=== PATIENT | male | born 1985 | race Caucasian/White ===

== ENCOUNTER 2016-11-19 19:08 | Emergency (ER) | payer OTHER ==
[~2016-11-19] VITALS: Ht 160 cm; Wt 64.4 kg
[2016-11-19 19:16] VITALS: BP 150/81; PULSE 57; TEMP 36.9; O2SAT 97; Ht 160 cm; Wt 64.4 kg
[2016-11-19] MEDS ORDERED: KETOROLAC TROMETHAMINE 30 MG/ML VIAL IV STA (19:43)
[2016-11-19 20:07] LABS: BASO % 0.3 %; BASO ABS # 0.03 K/uL (0-0.2); COMPLETE YES; EOS % 1.5 %; HEMATOCRIT 44.4 % (42-52); IG% 0.3 %; LYMPH % 20.7 %; LYMPH ABS # 2.45 K/uL (1.2-3.4); MEAN CELL VOLUME 83.8 fL (80-100); MEAN CORPUSCULAR HEMOGLOBIN 30.8 pg (25-34); MEAN CORPUSCULAR HGB CONC 36.7 g/dl (32-36); MEAN PLATELET VOLUME 9.8 fL (7.4-10.4); MONO % 10.5 %; NEUT % 66.7 %; PLATELET COUNT 271 K/uL (130-400); WHITE BLOOD COUNT 11.86 K/uL (4.8-10.8)
--- NOTE | 2016-11-19 20:21 | DIAGNOSTIC IMAGING REPORT ---
LEFT KNEE 3 VIEWS HISTORY: L knee pain and swelling COMPARISON: None. FINDINGS: There is no fracture or dislocation. Small knee effusion. Mild anterior soft tissue swelling. No radiopaque foreign bodies. IMPRESSION: No fractures. Small knee effusion and mild anterior soft tissue swelling. Electronically signed by: Isael North M.D. 11/19/2016 8:19 PM Dictated Date/Time: 11/19/2016 8:18 PM
[2016-11-19 20:23] LABS: BUN/CREATININE RATIO 22.2 (10-20); CREATININE 1.3 mg/dl (0.60-1.40); POTASSIUM 4.5 mmol/L (3.5-5.1)
[2016-11-19 20:29] LABS: C-REACTIVE PROTEIN 3.38 mg/dl (0-0.29); URIC ACID 7.4 mg/dl (2.6-7.2)
[2016-11-19 20:45] LABS: CALCIUM 9.4 mg/dl (8.5-10.1)
[2016-11-19 22:23] LABS: LYME DISEASE AB IGG NEG (NEG)
[2016-11-19 22:24] LABS: LYME DISEASE AB IGM NEG (NEG)
--- NOTE | 2016-11-20 17:55 | EMERGENCY ROOM VISIT NOTE ---
ED Visit Note First contact with patient: 19:25 Chief Complaint: Left knee pain and swelling. History of Present Illness: Mr. Wong is a 31-year-old white male who presents into the ED complaining of left anterior knee pain. Historically patient reports he's had similar symptoms of left knee pain and swelling approximately 2 years ago. He treated these symptoms symptomatically with ice and rest and they resolved and have not returned until most recently. 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 Then he started developing the pain and anterior left knee swelling approximately one week ago. Since that time his pain and symptoms have been constant. He was seen by his PCP Dr. Hansen and was prescribed Augmentin, benemid and indomethacin for his symptoms. He reports she thought his discomfort could be from gout or a possible knee infection. Patient reports prior to coming to the hospital he was only able to take his medications once. Currently he describes his pain as a burning sensation. He places his discomfort over the anterior patella with prominence over the lateral aspect. He rates his discomfort 9/10. His pain worsens with palpation, flexion and extension of the knee. He has not identified any alleviating factors related to the pain. He is uses prescribed indomethacin without relief of his discomfort. His pain is nonradiating. Associated with his pain he had noted swelling over the patella. He denies recent trauma, previous significant injuries or surgeries, fevers, chills, sweats, skin eruptions, skin color changes, chest pain, shortness of breath, abdominal pain, decreased appetite, nausea, vomiting, leg weakness/ numbness/tingling, previous clots, claudication, cramping. Review of Systems: As noted above in history of present illness. All body systems were reviewed and found to be negative as noted above. Past Medical History: As previously noted, asthma, unspecified ulcer, status post hernia repair. Current Medications: As noted previously. Allergies to Medications: Percocet. Social History: Patient is currently employed; he feels safe in his home environment; he denies tobacco use and admits to social alcohol use. Physical Examination: Vital Signs: Date Time Temp Pulse Resp B/P Pulse Ox O2 Delivery O2 Flow Rate FiO2 11/19/16 19:16 36.9 57 16 150/81 97 Room Air GENERAL: 31-year-old male in moderate distress due to pain, nontoxic-appearing, afebrile and hemodynamically stable. NEUROLOGICAL: Awake, alert and oriented to person, place and time. Answering questions appropriately and following commands. Lymph gait. Good hand eye coordination. No focal motor or sensory deficits. SKIN: Warm, dry and pink. No soft tissue eruptions or trauma noted. THORAX: Lungs sounds are clear to auscultation and equal bilaterally with symmetrical chest wall. ABDOMEN: Flat, soft and nontender. Positive bowel sounds in all quadrants. LEFT LOWER EXTREMITY: No gross bony deformity. No tenderness over the hip, thigh, lower leg, calf, ankle or foot. Moderate tenderness over the patella with prepatellar swelling but no erythema or warmth. Positive patellar apprehension test. Unable to perform a bounce test. Negative ballottement test. No laxity of the collateral or cruciate ligaments. Unable to perform a Skinny's test due to pain. No calf tenderness or cords. With the knee stabilized he has full range of motion in plantar flexion and dorsiflexion of the ankle against resistance. Throughout the feet skin is warm and pink capillary refill is brisk, pulses and sensations are intact and equal bilaterally. ED Course: Patient is assessed as noted above. An IV lock was initiated. Laboratory Testing: Test 11/19/16 19:55 Range/Units White Blood Count 11.86 4.8-10.8 K/uL Red Blood Count 5.30 4.7-6.1 M/uL Hemoglobin 16.3 14.0-18.0 g/dL Hematocrit 44.4 42-52 % Mean Corpuscular Volume 83.8 80-100 fL Mean Corpuscular Hemoglobin 30.8 25-34 pg Mean Corpuscular Hemoglobin Concent 36.7 32-36 g/dl Platelet Count 271 130-400 K/uL Mean Platelet Volume 9.8 7.4-10.4 fL Neutrophils (%) (Auto) 66.7 % Lymphocytes (%) (Auto) 20.7 % Monocytes (%) (Auto) 10.5 % Eosinophils (%) (Auto) 1.5 % Basophils (%) (Auto) 0.3 % Neutrophils # (Auto) 7.92 1.4-6.5 K/uL Lymphocytes # (Auto) 2.45 1.2-3.4 K/uL Monocytes # (Auto) 1.24 0.11-0.59 K/uL Eosinophils # (Auto) 0.18 0-0.5 K/uL Basophils # (Auto) 0.03 0-0.2 K/uL RDW Standard Deviation 37.9 36.4-46.3 fL RDW Coefficient of Variation 12.5 11.5-14.5 % Immature Granulocyte % (Auto) 0.3 % Immature Granulocyte # (Auto) 0.04 0.00-0.02 K/uL Erythrocyte Sedimentation Rate 12 0-14 mm/hr Sodium Level 141 136-145 mmol/L Potassium Level 4.5 3.5-5.1 mmol/L Chloride Level 108 98-107 mmol/L Carbon Dioxide Level 26 21-32 mmol/L Anion Gap 7.0 3-11 mmol/L Blood Urea Nitrogen 29 7-18 mg/dl Creatinine 1.30 0.60-1.40 mg/dl Est Creatinine Clear Calc Drug Dose 65.0 ml/min Estimated GFR () 83.1 Estimated GFR (Non- 71.7 BUN/Creatinine Ratio 22.2 10-20 Random Glucose 112 70-99 mg/dl Uric Acid 7.4 2.6-7.2 mg/dl Calcium Level 9.4 8.5-10.1 mg/dl C-Reactive Protein 3.38 0-0.29 mg/dl Lyme Disease IgG Antibody NEG NEG Lyme Disease IgM Antibody NEG NEG Left Knee X-Rays: Were read by myself and the radiologist showing no acute fractures or dislocations. Small knee effusion and mild anterior soft tissue swelling. Patient received 30 mg of Toradol IV for pain. Patient was reassessed multiple times during his stay in the emergency department. Patient's case was reviewed with Dr. Limon; we agreed on diagnostic approach, treatment, disposition and plan. Patient was offered a knee arthrocentesis and when I was explaining the risks and benefits he refused. Patient was placed in a posterior Ortho-Glass the splint in slight flexion and was educated and instructed on crutch use. Patient was educated about today's findings and instructed on his treatment plan ; he verbalizes understanding and agreement with this plan. Clinical Impression: Anterior left knee pain. Decision-Making: Initially my differential diagnosis I considered gout, pseudogout, joint infection, joint effusion, arthritis exacerbation and other causes. Disposition: Patient discharged home in stable condition accompanied by his ; prior to departure he was reassessed and subjectively reported he was feeling much better and rated his discomfort 10. Plan: Patient was encouraged to continue his current medications as prescribed. Additional comfort measures were discussed with the patient including ice, rest , elevation, splint and crutch use. Patient was encouraged to return to the ED in 36-48 hours for recheck or sooner for any signs of infection or any new/concerning symptoms.
== END 2016-11-19 21:51 | disposition home or self-care (01) ==
LOC: C.EDB 19:10 → C.EDD 21:51
DX: M25.562 Pain in left knee (principal); J45.909 Unspecified asthma, uncomplicated

== ENCOUNTER 2016-11-21 16:52 | Emergency (ER) | payer OTHER ==
[~2016-11-21] VITALS: Ht 160 cm; Wt 64.8 kg
[2016-11-21 17:03] VITALS: BP 143/87; PULSE 59; TEMP 36.6; O2SAT 97; Ht 160 cm; Wt 64.8 kg
[2016-11-21] MEDS ORDERED: INDO-24 PO (21:19)
[2016-11-21] MEDS ORDERED: PROB500T8 PO (21:19)
[2016-11-21] MEDS ORDERED: AMOX875T PO (21:19)
--- NOTE | 2016-11-22 23:35 | EMERGENCY ROOM VISIT NOTE ---
ED Visit Note First contact with patient: 17:02 Chief Complaint: Left knee pain. History of Present Illness: Mr. Cohn is a 31-year-old white male who ambulates into the ED on crutches for reevaluation of his left knee pain. I had seen Mr. Cohn 48 hours ago for left knee pain of questionable etiology. On my initial evaluation he had a mild leukocytosis phthisis and an elevated C-reactive protein and uric acid level. He was offered to have an arthrocentesis and refused. He was discharged home on his previous prescribed medications and encouraged return to the ED and 36-48 hours for recheck. On arrival to the ED today patient reports he is currently pain-free. He is not experiencing any additional symptoms since being discharged and denies any fevers, chills, sweats, skin eruptions, red streaking, knee swelling, leg swelling. Review of Systems: As noted above in history of present illness. Physical Examination: Vital Signs: Date Time Temp Pulse Resp B/P Pulse Ox O2 Delivery O2 Flow Rate FiO2 11/21/16 17:03 36.6 59 18 143/87 97 Room Air GENERAL: 31-year-old male in no acute distress, nontoxic-appearing, afebrile and hemodynamically stable. NEUROLOGICAL: Awake, alert and oriented to person, place and time. Answering questions appropriately and following commands. SKIN: Warm, dry and pink. No soft tissue eruptions or trauma noted. LEFT LOWER EXTREMITY: No gross bony deformity. No tenderness over the hip, thigh, lower leg, ankle or foot. Patient does have mild tenderness over the lateral side of the patella but he has had resolution of all swelling and there is no local erythema, edema or red streaking. The knee does not feel hot and does not appear cellulitic. His range of motion is currently full and flexion and extension. Reevaluation of his ligamentous structures shows there are intact. Negative bounce test. Negative patellar apprehension test. Throughout the lower leg the skin was warm and pink and capillary refill is brisk. He was able to distinguish light sensations through all dermatomes. ED Course: Patient is assessed as noted above. Patient's knee was rewrapped with an Bjorn bandage and his posterior splint. Patient was educated about tonight's findings and instructed on his treatment plan; he verbalizes understanding and agreement with this plan. Clinical Impression: Improving left knee pain. Disposition: Patient discharged home in stable condition accompanied by his . Plan: Patient was encouraged to continue his current medications as prescribed. Patient was encouraged to stay on crutches for 2 additional days. Patient was encouraged to follow-up with his PCP for recheck at the end of his course of medications including his antibiotics. Patient was encouraged return the ED for return of severe knee pain, knee swelling, knee redness, fevers or any new/concerning symptoms.
== END 2016-11-21 17:33 | disposition home or self-care (01) ==
LOC: C.EDB 16:53 → C.EDD 17:33
DX: M25.562 Pain in left knee (principal)

== ENCOUNTER 2017-04-26 00:02 | Emergency (ER) | payer OTHER ==
[~2017-04-26] VITALS: Ht 160 cm; Wt 64.9 kg
[~2017-04-26 00:02] MED LIST: AMOX875T PO; INDO-24 PO; PROB500T8 PO
[2017-04-26 00:11] VITALS: BP 133/85; PULSE 59; TEMP 36.6; O2SAT 95; Ht 160 cm; Wt 64.9 kg
[2017-04-26] MEDS ORDERED: DEXAMETHASONE SOD INJ 10 MG/ML VIAL IM ONE (00:30)
[2017-04-26] MEDS ORDERED: KETOROLAC TROMETHAMINE 60 MG/2 ML VIAL IM STA (00:30)
[2017-04-26] MEDS ORDERED: FLUT1SPR12 NAE (00:42)
[2017-04-26] MEDS ORDERED: MONT1TAB3 PO (00:42)
[2017-04-26] MEDS ORDERED: VNTHFA/IN INH (00:43)
[2017-04-26] MEDS ORDERED: ZNTT/150 PO (00:44)
[2017-04-26] MEDS ORDERED: METH4PAK PO (01:54)
--- NOTE | 2017-04-26 04:46 | EMERGENCY ROOM VISIT NOTE ---
ED Visit Note First contact with patient: 00:17 CHIEF COMPLAINT: knee pain HISTORY OF PRESENT ILLNESS: This 32-year-old male patient presents to the emergency department with complaints of worsening right knee pain over the past one day. The patient does not recall a distinct trauma to explain his symptoms. He recently closed on a new home, and has been doing work at the new house. This does include lifting and kneeling. The patient does work in [employer] and often has to lift and climb for employment. There is a possible history of gout in the past. They rate the pain as dull and 8/10. The patient states they are able to walk on it, but it feels better with crutches. No numbness or tingling. No previous injuries to this knee. No ankle, foot or hip pain. REVIEW OF SYSTEMS: A 6 system review of systems was completed with positives and pertinent negatives listed in the HPI. ALLERGIES: See EMR MEDICATIONS: See EMR PMH: History of gout SOCIAL HISTORY: Lives locally PHYSICAL EXAM: Vital Signs: Reviewed Nurse's notes, vital signs stable. GENERAL : White male, no acute distress, but appears in pain, well-developed, well- nourished. MENTAL STATUS: Alert, oriented to person place and time, and cooperative. MUSCULOSKELETAL: The right knee is minimally swollen along the lateral infrapatellar space. There is no significant ecchymosis. There is no significant joint effusion present. The patient is tender laterally. The patella does not subluxate. Range of motion is normal. Strength of the quads and hamstrings is 5/5. Anaya's and Anterior Drawer tests are negative. There is no laxity with varus and valgus stressing. The foot and toes are warm and well-perfused. Dorsalis pedis pulse 2+. Sensation to pain and light touch is intact. Capillary refill less than 2 seconds. EMERGENCY DEPARTMENT COURSE: Physical exam and history were performed. Nursing notes and EMR were reviewed. The patient has knee pain that may be related to increased and different activity. He is really does not have an exam consistent with a septic joint or significant gout attack. The patient was given 60 mg IM Toradol and 10 mg IM Decadron. X-ray was obtained and does not show significant acute bony process with radiology read pending at the time of this dictation. Overall the patient appears well for discharge home and did have improvement after treatment here. He has crutches from home that he may continue to use. I recommended the patient follow with orthopedics. He was otherwise invited back to the ER with any new, worsening, or concerning symptoms. Current/Historical Medications Scheduled Fluticasone Propionate (Nasal) (Flonase Allergy Relief Ch), 2 SPRY DAVID DIRECTED Methylprednisolone (Medrol Dosepak), 1 PKT PO DIRECTED Montelukast Sodium (Singulair), 10 MG PO DAILY Ranitidine (Zantac), 150 MG PO BID Scheduled PRN Albuterol Hfa (Ventolin Hfa), 2-4 PUFFS INH Q6H PRN for wheezing Allergies Coded Allergies: Acetaminophen (Verified Allergy, Intermediate, SWELLS TONGUE, 04/26/17) Oxycodone (Verified Allergy, Intermediate, SWELLS TONGUE, 04/26/17) Indomethacin (Verified Allergy, Unknown, unknown, 04/26/17) Uncoded Allergies: PROBENSEN (Allergy, Unknown, unknown, 04/26/17) Vital Signs Date Time Temp Pulse Resp B/P (MAP) Pulse Ox O2 Delivery O2 Flow Rate FiO2 04/26/17 00:11 36.6 59 20 133/85 95 Room Air Medications Administered Medications (Trade) Dose Ordered Sig/Duke Route Start Time Stop Time Status Last Admin Dose Admin Dexamethasone Sodium Phosphate (Decadron Inj) 10 mg NOW ONCE IM 04/26/17 00:30 04/26/17 00:31 DC 04/26/17 00:57 10 MG Ketorolac Tromethamine (Toradol Inj) 60 mg NOW STAT IM 04/26/17 00:30 04/26/17 00:31 DC 04/26/17 00:58 60 MG Departure Information Impression Primary Impression: Right knee pain Dispostion Home / Self-Care Condition GOOD Prescriptions Methylprednisolone (MEDROL DOSEPAK) 4 Mg Jose 1 PKT PO DIRECTED, #1 PKT Prov: David Cox PA-C 04/26/17 Referrals Maxi Rodríguez MD Forms HOME CARE DOCUMENTATION FORM, IMPORTANT VISIT INFORMATION Patient Instructions My [facility] Additional Instructions You were seen and evaluated today on an emergency basis only. This is not a substitute for, or an effort to provide, complete comprehensive medical care. It is not possible to recognize and treat all injuries or illnesses in a single emergency department visit. For this reason it is recommended that you followup with Orthopedics, Dr. Rodríguez's office, for ongoing care and evaluation. Continue [id number] Aleve. Take a Medrol Dosepak as prescribed. You are welcome to return to the emergency department anytime with new, worsening, or concerning symptoms.
--- NOTE | 2017-04-26 06:35 | DIAGNOSTIC IMAGING REPORT ---
R KNEE 3 VIEWS HISTORY: 32 years-old Male Right knee pain acute right knee pain without trauma COMPARISON: None available TECHNIQUE: 4 views of the right knee FINDINGS: No acute fracture, dislocation or significant degenerative changes. No intra-articular loose body. Mild soft tissue swelling about the knee with small joint effusion. IMPRESSION: Mild soft tissue swelling and small joint effusion without acute bony abnormality. The above report was generated using voice recognition software. It may contain grammatical, syntax or spelling errors. Electronically signed by: Calin Moses M.D. 04/26/2017 6:33 AM Dictated Date/Time: 04/26/2017 6:32 AM
== END 2017-04-26 02:08 | disposition home or self-care (01) ==
LOC: C.EDB 00:04 → C.EDA 02:08
DX: M25.561 Pain in right knee (principal)

== ENCOUNTER 2018-01-19 23:22 | Inpatient (IN) | payer OTHER ==
[~2018-01-19] VITALS: Ht 160 cm; Wt 59.3 kg
[~2018-01-19 23:22] MED LIST changes: -AMOX875T PO; +FLUT1SPR12 NAE; -INDO-24 PO; +MONT1TAB3 PO; -PROB500T8 PO; +RANI150T85 PO; +VNTHFA/IN INH
[2018-01-19] MEDS ORDERED: KETOROLAC TROMETHAMINE 30 MG/ML VIAL IV STA (23:31)
[2018-01-19] MEDS ORDERED: SODIUM CHLORIDE 0.9% 1000ML 1,000 ML IV STA (23:31)
[2018-01-20 00:02] LABS: BASO % 0.2 %; BASO ABS # 0.02 K/uL (0-0.2); EOS % 3.6 %; EOS ABS # 0.36 K/uL (0-0.5); HEMATOCRIT 44.3 % (42-52); HEMOGLOBIN 16.3 g/dL (14.0-18.0); IG# 0.03 K/uL (0.00-0.02); LYMPH % 23.3 %; LYMPH ABS # 2.35 K/uL (1.2-3.4); MEAN CELL VOLUME 83.1 fL (80-100); MEAN CORPUSCULAR HEMOGLOBIN 30.6 pg (25-34); MEAN CORPUSCULAR HGB CONC 36.8 g/dl (32-36); MEAN PLATELET VOLUME 10.1 fL (7.4-10.4); MONO % 12.8 %; MONO ABS # 1.29 K/uL (0.11-0.59); NEUT % 59.8 %; NEUT ABS # 6.03 K/uL (1.4-6.5); PLATELET COUNT 287 K/uL (130-400); RED CELL DISTRIBUTION WIDTH CV 12.8 % (11.5-14.5); RED CELL DISTRIBUTION WIDTH SD 38.2 fL (36.4-46.3); WHITE BLOOD COUNT 10.08 K/uL (4.8-10.8)
--- NOTE | 2018-01-20 00:02 | EMERGENCY ROOM VISIT NOTE ---
History First contact with patient: 23:29 Chief Complaint: CONSTIPATION Stated Complaint: BOWEL PAIN Nursing Triage Summary: unable to have a formed bowel movement. pt states hes just been having watery stools the passed few days. abd pain 4/10 History of Present Illness The patient is a 32 year old male who presents to the Emergency Room with complaints of lower abdominal pain for the past few days currently 4 out of 10. Patient thought he was constipated and went to the family care doctor and was given MiraLAX and mag citrate. He states he has had a fair amount of diarrhea. Patient still complains of ongoing pain. Nothing makes it better or worse. It does not radiate. Patient denies chest pain, dyspnea, fever, chills, nausea , vomiting, back pain, penile pain, testicular pain, urinary problems. Left inguinal hernia repair. Review of Systems An 10 system review of systems was completed with positives and pertinent negatives listed in the HPI. Past Medical/Surgical History gout, inguinal hernia Social History Smoking Status: Never Smoker Drug Use: none Marital Status: Housing Status: lives with family Occupation Status: employed Current/Historical Medications Scheduled Fluticasone Propionate (Nasal) (Flonase Allergy Relief ), 2 SPRY DAVID DIRECTED Montelukast Sodium (Singulair), 10 MG PO DAILY Ranitidine (Zantac), 150 MG PO BID Scheduled PRN Albuterol Hfa (Ventolin Hfa), 2-4 PUFFS INH Q6H PRN for wheezing Physical Exam Vital Signs Date Time Temp Pulse Resp B/P (MAP) Pulse Ox O2 Delivery O2 Flow Rate FiO2 01/20/18 01:41 47 16 126/69 98 Room Air 01/20/18 00:10 51 01/19/18 23:52 70 01/19/18 23:51 97 Room Air 01/19/18 23:26 37.0 63 16 133/76 98 Room Air Physical Exam VITALS: Vitals are noted on the nurse's note and reviewed by myself. Vital signs stable. GENERAL: Pleasant male walking around without difficulties, in no acute distress , nondiaphoretic, well-developed well-nourished. SKIN: The skin was without rashes, erythema, edema, or bruising. There is no tenting of the skin. Capillary reflex less than 2 seconds. HEAD: Normocephalic atraumatic. EARS: External auditory canals clear. EYES: Pupils equal round and reactive to light and accommodation. Conjunctivae without injection, sclerae without icterus. Extraocular movements intact. NOSE: Patent, turbinates without inflammation or discharge. MOUTH: Mucous membranes moist. Pharynx without erythema or exudate. Uvula midline. Airway patent. Tongue does not deviate. NECK: Supple without nuchal rigidity. No lymphadenopathy. No thyromegaly. Cervical spine is nontender. No JVD. HEART: Regular rate and rhythm without murmurs gallops or rubs. LUNGS: Clear to auscultation bilaterally without wheezes, rales or rhonchi. No retractions or accessory muscle use. ABDOMEN: Positive bowel sounds x 4. Normal tympanic percussion. Soft, lower abdomen tender to palpation, without masses or organomegaly. Souza sign negative. No guarding or rebound tenderness. No CVA tenderness MUSCULOSKELETAL: No muscle atrophy, erythema, or edema noted. NEURO: Patient was alert and oriented to person place and time. Normal sensation to light and sharp touch. No focal neurological deficits. Medical Decision & Procedures Laboratory Results 01/19/18 23:50 Red Blood Count 5.33, Mean Corpuscular Volume 83.1, Mean Corpuscular Hemoglobin 30.6, Mean Corpuscular Hemoglobin Concent 36.8, Mean Platelet Volume 10.1, Neutrophils (%) (Auto) 59.8, Lymphocytes (%) (Auto) 23.3, Monocytes (%) (Auto) 12.8, Eosinophils (%) (Auto) 3.6, Basophils (%) (Auto) 0.2, Neutrophils # (Auto ) 6.03, Lymphocytes # (Auto) 2.35, Monocytes # (Auto) 1.29, Eosinophils # (Auto ) 0.36, Basophils # (Auto) 0.02 01/19/18 23:50 Test 01/19/18 23:50 01/20/18 01:20 01/20/18 01:37 White Blood Count 10.08 K/uL (4.8-10.8) Red Blood Count 5.33 M/uL (4.7-6.1) Hemoglobin 16.3 g/dL (14.0-18.0) Hematocrit 44.3 % (42-52) Mean Corpuscular Volume 83.1 fL (80-100) Mean Corpuscular Hemoglobin 30.6 pg (25-34) Mean Corpuscular Hemoglobin Concent 36.8 g/dl (32-36) Platelet Count 287 K/uL (130-400) Mean Platelet Volume 10.1 fL (7.4-10.4) Neutrophils (%) (Auto) 59.8 % Lymphocytes (%) (Auto) 23.3 % Monocytes (%) (Auto) 12.8 % Eosinophils (%) (Auto) 3.6 % Basophils (%) (Auto) 0.2 % Neutrophils # (Auto) 6.03 K/uL (1.4-6.5) Lymphocytes # (Auto) 2.35 K/uL (1.2-3.4) Monocytes # (Auto) 1.29 K/uL (0.11-0.59) Eosinophils # (Auto) 0.36 K/uL (0-0.5) Basophils # (Auto) 0.02 K/uL (0-0.2) RDW Standard Deviation 38.2 fL (36.4-46.3) RDW Coefficient of Variation 12.8 % (11.5-14.5) Immature Granulocyte % (Auto) 0.3 % Immature Granulocyte # (Auto) 0.03 K/uL (0.00-0.02) Anion Gap 8.0 mmol/L (3-11) Est Creatinine Clear Calc Drug Dose 71.0 ml/min Estimated GFR () 92.8 Estimated GFR (Non- 80.0 BUN/Creatinine Ratio 13.3 (10-20) Calcium Level 8.9 mg/dl (8.5-10.1) Magnesium Level 2.0 mg/dl (1.8-2.4) Total Bilirubin 0.6 mg/dl (0.2-1) Direct Bilirubin 0.1 mg/dl (0-0.2) Aspartate Amino Transf (AST/SGOT) 17 U/L (15-37) Alanine Aminotransferase (ALT/SGPT) 22 U/L (12-78) Alkaline Phosphatase 92 U/L (45-117) Troponin I < 0.015 ng/ml (0-0.045) Total Protein 7.4 gm/dl (6.4-8.2) Albumin 3.3 gm/dl (3.4-5.0) Lipase 120 U/L (73-393) Thyroid Stimulating Hormone (TSH) 2.330 uIu/ml (0.300-4.500) Lyme Disease IgG Antibody NEG (NEG) Lyme Disease IgM Antibody NEG (NEG) Urine Color YELLOW Urine Appearance CLEAR (CLEAR) Urine pH 7.0 (4.5-7.5) Urine Specific [place] 1.032 (1.000-1.030) Urine Protein NEG (NEG) Urine Glucose (UA) NEG (NEG) Urine Ketones NEG (NEG) Urine Occult Blood NEG (NEG) Urine Nitrite NEG (NEG) Urine Bilirubin NEG (NEG) Urine Urobilinogen NEG (NEG) Urine Leukocyte Esterase NEG (NEG) Bedside Lactic Acid Venous 0.75 mmol/L (0.90-1.70) Medications Administered Medications (Trade) Dose Ordered Sig/Duke Route Start Time Stop Time Status Last Admin Dose Admin Sodium Chloride 1,000 ml @ 999 mls/hr Q1H1M STAT IV 01/19/18 23:31 01/20/18 00:31 DC 01/19/18 23:51 999 MLS/HR Ketorolac Tromethamine (Toradol Inj) 10 mg NOW STAT IV 01/19/18 23:31 01/19/18 23:35 DC 01/19/18 23:51 10 MG Sodium Chloride 1,000 ml @ 999 mls/hr Q1H1M STAT IV 01/20/18 01:23 01/20/18 02:23 01/20/18 01:38 999 MLS/HR Imipenem/ Cilastatin Sodium 500 mg/Dextrose 110 ml @ 100 mls/hr NOW STAT IV 01/20/18 01:29 01/20/18 02:34 01/20/18 02:07 100 MLS/HR ED Course Prior records/ancillary studies reviewed. Triage Nursing notes reviewed. The patient's history was concerning for abdominal pain. Differential diagnosis: Etiologies such as appendicitis, diverticulitis, PUD, biliary pathology, UTI, pancreatitis, obstruction, mesenteric ischemia, aortic pathology, infections, inflammatory bowel disease, renal colic, as well as others were entertained. Physical examination findings: As above. ER treatment provided: toradol , NSS On reassessment the patient felt better. Diagnostics interpreted by me: EKG: Sinus rhythm with no acute ST-T wave changes, P waves are progressively longer with dropped beats consistent with a Mobitz type I, ventricular rate of 49. No old EKG. Impression Mobitz type I interpreted by myself EKG was ordered secondary to abnormal rhythm seen on the monitor The labs revealed stable H&H. Euthyroid. Negative Lyme screen. Negative lactic acid Blood cultures pending Negative urine Imaging studies: CT ABDOMEN & PELVIS With Contrast: Sigmoid colitis. Small amount of free air near the inflamed segment. No drainable abscess. The bladder apex appears tethered to the colon with an aerated fistulous tract between the structures. Cannot exclude a urachal diverticulum at the apex. Unremarkable appendix. Small fatty right inguinal hernia. Radiologist: Dav Olivas M.D. Study ready at 00:48 and initial results transmitted at 01:23 Consultation: A consultation was placed with the surgeon, Dr. Borjas. The case was discussed and diagnostics were reviewed. He recommends antibiotics and have medicine admit and they will follow. Medicine was consulted and Dr. Neumann will evaluate the patient. The patient was evaluated in the ER for further treatment. Exam and history seem consistent with colitis with perforation with possible fistula. Patient had no leukocytosis. Stable H&H. Negative lactic acid. He was started on broad-spectrum antibiotics. Blood cultures pending. His urine was negative. He had a new abnormal heart rhythm. Patient denies any cardiac symptoms or syncopal symptoms. Patient is agreeable to treatment plan of admission. By the evaluation outlined above emergent etiologies such as appendicitis, PUD , biliary pathology, UTI, pancreatitis, obstruction, mesenteric ischemia, aortic pathology, renal colic, as well as others were deemed relatively unlikely. The pt informed about the findings as listed above. All questions were answered and pleased with the treatment. . Case reviewed with my attending The chart was completed utilizing [employer] Speech voice recognition software. Grammatical errors, random word insertions, pronoun errors, and incomplete sentences are an occassional consequence of this system due to software limitations, ambient noise, and hardware issues. Any formal questions or concerns about the content, text, or information contained within the body of this dictation should be directly addressed to the physician visitor use assistant for clarification. Medical Decision as above Medication Reconcilliation Current Medication List: was personally reviewed by me Blood Pressure Screening Patient's blood pressure: Normal blood pressure Impression Primary Impression: Colitis with complication Additional Impression: Free intraperitoneal air Departure Information Dispostion Being Evaluated By Hospitalist Condition GOOD Referrals Suzanne Blanco M.D. (MEDICAL) (PCP) Patient Instructions My [facility] Problem Qualifiers
[2018-01-20] MEDS ORDERED: OPTIRAY 320 IV PRN (00:15)
[2018-01-20 00:25] LABS: ALBUMIN 3.3 gm/dl (3.4-5.0); ALKALINE PHOSPHATASE 92 U/L (45-117); ALT/SGPT 22 U/L (12-78); AST/SGOT 17 U/L (15-37); BLOOD UREA NITROGEN 16 mg/dl (7-18); CALCIUM 8.9 mg/dl (8.5-10.1); CARBON DIOXIDE 26 mmol/L (21-32); CREATININE 1.18 mg/dl (0.60-1.40); GLUCOSE 94 mg/dl (70-99); LIPASE 120 U/L (73-393); POTASSIUM 3.9 mmol/L (3.5-5.1); SODIUM 142 mmol/L (136-145); TOTAL PROTEIN 7.4 gm/dl (6.4-8.2)
[2018-01-20] MEDS ORDERED: SODIUM CHLORIDE 0.9% 1000ML 1,000 ML IV STA (01:23)
[2018-01-20] MEDS ORDERED: IMIPENEM/CILASTATIN IV 500 MG in DEXTROSE 5% 100ML 100 ML IV STA (01:29)
[2018-01-20] MEDS ORDERED: DAPTOmycin IV 400 MG in SODIUM CHLORIDE 0.9% 50ML 50 ML IV STA (01:29)
[2018-01-20] MEDS ORDERED: PROCHLORPERAZINE INJ 5 MG in SYRINGE 4 ML IV PRN (02:45)
[2018-01-20] MEDS ORDERED: LORAZEPAM 2 MG/ML 1 ML VIAL IV PRN (02:45)
[2018-01-20] MEDS ORDERED: MoRPHine SULFATE 4 MG/ML 1 ML CARP\\VIAL IV PRN (02:45)
[2018-01-20 02:49] VITALS: BP 164/85; PULSE 49; TEMP 36.9; O2SAT 99; BMI 24.9
[2018-01-20] MEDS: D5W AND LACTATED RINGERS 1,000 ML IV SCH ×3 (03:17→22:21)
[2018-01-20 03:20] VITALS: BP 128/81; PULSE 53
--- NOTE | 2018-01-20 04:36 | HISTORY & PHYSICAL EXAMINATION ---
DATE OF ADMISSION: 01/20/2018 PRIMARY CARE DOCTOR. The patient currently has no primary care doctor. CHIEF COMPLAINT: Abdominal pain. HISTORY OF PRESENT ILLNESS: History obtained from the patient and records. Medical history significant for asthma, allergic rhinitis, hyperuricemia, reflux. The last 2 days, patient more constipated than usual, achy lower abdominal pain. Patient admits to straining more than usual. No nausea, no emesis. Denies dysuria. Night sweats chills at some point. Patient seen at PCP's office. Seen at PCP's office, prescribed laxatives, enemas after plain x-ray showed stool burden. Successful nonbloody bowel movement with enema and MiraLax. Patient still has lower abdominal discomfort. At the Emergency Room, initial CT read showed sigmoid colitis, small amount of free air near inflamed segment. No drainable abscess. possible urachal diverticulum at the apex. Unremarkable appendix, right inguinal hernia. Patient received imipenem in the ER. MEDICAL HISTORY: As above. SURGERIES: He has had tonsillectomy, adenectomy, hernia repair. HOME MEDICATIONS: Include albuterol, cetirizine, Zantac, Singulair, fluticasone. ALLERGIES: INDOMETHACIN, PERCOCET, PROBENECID. FAMILY HISTORY: No significant family history. PERSONAL AND SOCIAL HISTORY: Nonsmoker, no chronic intake of alcoholic beverages. HVAC work. REVIEW OF SYSTEMS: As per HPI, all, 10 systems reviewed. All others ROS negative. PHYSICAL EXAMINATION: VITAL SIGNS: Blood pressure was noted to be 130/76, pulse rate 60 later 50, RR 16, T 37 O2 sats 98 on room air. GENERAL: Noted to be uncomfortable, slightly anxious, no respiratory distress. SKIN: Normal color, warm. HEENT: bespectacled. [place] palpebral conjunctivae. No ptosis. Dry mucosa. NECK: Supple, nontender. CHEST: CTA. There is no tenderness. HEART: Bradycardic, no murmur. ABDOMEN: Hypogastric tenderness, some distention. EXTREMITIES: No edema. No tenderness, no gross deformities NEUROLOGIC: Coherent, no other gross focality. DATA: Hemoglobin was noted to be 15 WBC 10, platelets 287. Sodium 142, potassium 3.8, chloride 108, CO2 26, BUN 16, creatinine 1.18, glucose was 94. UA no WBC CT abdomen and pelvis initial read as above. ASSESSMENT: 1. Sigmoid colitis possible microperforation with small amount of free air noted on CT initial read. No sepsis. Recent bout of constipation status post laxative/enema prescription. 2. Asthma, stable. 3. GERD on H2 blockers PLAN: GMF bowel rest. Unasyn. Follow official CT abdomen pelvis results Surgery consult. RE abdominal pain, abnormal CT (ER provide already in touch with Dr. Landon.) DVT prophylaxis, SCDs. Full code. Patient requesting for PCP services to be set up at [facility] on discharge. [facility]
[2018-01-20] MEDS ORDERED: LORAZEPAM INJ 0.5 MG in SYRINGE 0.75 ML IV PRN (05:00)
[2018-01-20] MEDS ORDERED: MoRPHine SULFATE 2 MG/ML CARP IV PRN (05:15)
[2018-01-20] MEDS ORDERED: DiphenhydrAMINE INJ 25 MG in SYRINGE 0 ML IV PRN (05:15)
[2018-01-20] MEDS ORDERED: DiphenhydrAMINE HCL 50 MG/ML VIAL IV PRN (05:15)
[2018-01-20] MEDS: AMPICILLIN/SULBACTAM SOD INJ 3,000 MG in SODIUM CHLORIDE 0.9% 100ML 100 ML IV SCH ×2 (05:51→12:20)
--- NOTE | 2018-01-20 06:39 | DIAGNOSTIC IMAGING REPORT ---
ABD/PELVIS IV CONTRAST ONLY CT DOSE: 280.39 mGy.cm HISTORY: Pain. Nausea. lower abd pain TECHNIQUE: Multiaxial CT images of the abdomen and pelvis were performed following the use of intravenous contrast. A dose lowering technique was utilized adhering to the principles of ALARA. COMPARISON STUDY: None. FINDINGS: Lung bases are clear. Liver spleen and pancreas are unremarkable. Bowel pattern within the abdomen suggests mild nonobstructive ileus. There are several small scattered mesenteric nodes. Evaluation of the pelvis is problematic due to the absence of oral contrast. There is a fluid-filled rectosigmoid with potential redundancy of the rectum versus an internal septation. At the more proximal aspect of the sigmoid is evidence for acute diverticulitis. There are 2 walled off air contained perforation is. There is no evidence for an associated drainable abscess or collection at these sites. There is wall thickening of the proximal sigmoid with considerable pericolonic infiltrative change. His possibility of patent urachus with an air containing tract extending to the thickened wall of the anterior right middle to mid sigmoid. This again raises the possibility of fistulous tract site. There is no evidence of bowel distention area there are several small reactive mesenteric and pelvic nodes. Inguinal regions are unremarkable. IMPRESSION: 1. Acute proximal sigmoid diverticulitis with several small localized air containing walled off perforations. 2. Considerable pericolonic infiltrative change with evidence for superimposed patent urachus with a potential fistulous tract extending to the proximal sigmoid. 3. Fluid-filled rectal sigmoid junction and rectum with an internal septation raises the possibility of a focal additional walled off perforation versus colonic redundancy. 4. No evidence for a percutaneously drainable abscess or collection. The above report was generated using voice recognition software. It may contain grammatical, syntax or spelling errors. Electronically signed by: Venkatesh Lizarraga M.D. 01/20/2018 6:38 AM Dictated Date/Time: 01/20/2018 6:30 AM
[2018-01-20 07:07] VITALS: BP 139/76; PULSE 44; TEMP 36.7; O2SAT 96
[2018-01-20] MEDS: FAMOTIDINE IV INJ 20 MG in SYRINGE 3 ML IV SCH ×2 (08:28→22:20)
[2018-01-20] MEDS: FLUTICASONE PROPIONATE NA SPR 16 GM BTL NAE SCH (08:28)
[2018-01-20] MEDS ORDERED: AMPICILLIN/SULBACTAM CONSULT ACTIVE PRN (09:00)
--- NOTE | 2018-01-20 11:03 | Progress Note ---
Medicine Progress Note Date & Time of Visit: Jan 20, 2018 at 10:48. Subjective Pt was seen and examined Lying in bed with no distress Pt said that his pain is only very mild He said that he continues to have diarrhea, last episodes was about 30minutes ago Denies any chest pain, fever, palpitation, Nausea and Vomiting Objective Last 8 Hrs Date Time Temp Pulse Resp B/P (MAP) Pulse Ox O2 Delivery O2 Flow Rate FiO2 01/20/18 08:35 Room Air 01/20/18 07:07 36.7 44 18 139/76 (97) 96 Room Air 01/20/18 03:20 Room Air 01/20/18 03:20 53 128/81 (97) 01/20/18 02:49 36.9 49 16 164/85 99 Room Air Physical Exam: General- no acute distress Head- atraumatic Eyes- PERRL, EOMI ENT- oropharynx clear Neck- supple, no JVD Lungs- clear to auscultation Heart- regular rhythm Abdomen- hyperactive bowel sounds, nontender, mild tenderness on LLQ with deep palpation Extremities- no pretibial edema, no calf tenderness Neuro- alert, oriented x 3; PERRL, EOMI; no facial palsy Skin- warm & dry Laboratory Results: Last 24 Hours Test 01/19/18 23:50 01/20/18 01:20 01/20/18 01:37 White Blood Count 10.08 K/uL Red Blood Count 5.33 M/uL Hemoglobin 16.3 g/dL Hematocrit 44.3 % Mean Corpuscular Volume 83.1 fL Mean Corpuscular Hemoglobin 30.6 pg Mean Corpuscular Hemoglobin Concent 36.8 g/dl Platelet Count 287 K/uL Mean Platelet Volume 10.1 fL Neutrophils (%) (Auto) 59.8 % Lymphocytes (%) (Auto) 23.3 % Monocytes (%) (Auto) 12.8 % Eosinophils (%) (Auto) 3.6 % Basophils (%) (Auto) 0.2 % Neutrophils # (Auto) 6.03 K/uL Lymphocytes # (Auto) 2.35 K/uL Monocytes # (Auto) 1.29 K/uL Eosinophils # (Auto) 0.36 K/uL Basophils # (Auto) 0.02 K/uL RDW Standard Deviation 38.2 fL RDW Coefficient of Variation 12.8 % Immature Granulocyte % (Auto) 0.3 % Immature Granulocyte # (Auto) 0.03 K/uL Sodium Level 142 mmol/L Potassium Level 3.9 mmol/L Chloride Level 108 mmol/L Carbon Dioxide Level 26 mmol/L Anion Gap 8.0 mmol/L Blood Urea Nitrogen 16 mg/dl Creatinine 1.18 mg/dl Est Creatinine Clear Calc Drug Dose 71.0 ml/min Estimated GFR () 92.8 Estimated GFR (Non- 80.0 BUN/Creatinine Ratio 13.3 Random Glucose 94 mg/dl Calcium Level 8.9 mg/dl Magnesium Level 2.0 mg/dl Total Bilirubin 0.6 mg/dl Direct Bilirubin 0.1 mg/dl Aspartate Amino Transf (AST/SGOT) 17 U/L Alanine Aminotransferase (ALT/SGPT) 22 U/L Alkaline Phosphatase 92 U/L Troponin I < 0.015 ng/ml Total Protein 7.4 gm/dl Albumin 3.3 gm/dl Lipase 120 U/L Thyroid Stimulating Hormone (TSH) 2.330 uIu/ml Lyme Disease IgG Antibody NEG Lyme Disease IgM Antibody NEG Urine Color YELLOW Urine Appearance CLEAR Urine pH 7.0 Urine Specific [place] 1.032 Urine Protein NEG Urine Glucose (UA) NEG Urine Ketones NEG Urine Occult Blood NEG Urine Nitrite NEG Urine Bilirubin NEG Urine Urobilinogen NEG Urine Leukocyte Esterase NEG Bedside Lactic Acid Venous 0.75 mmol/L Date/Time Source Procedure Growth Status 01/20/18 01:38 Blood Blood Culture Pending Received 01/20/18 01:30 Blood Blood Culture Pending Received Assessment & Plan Acute proximal sigmoid diverticulitis Present with LLQ abdominal tenderness associated with diarrhea CT abdomen showed acute proximal sigmoid diverticulitis with several small localized air containing walled off perforations No evidence for a percutaneously drainable abscess or collection. Received Dapto and Primaxin in the ER Continue Unasyn IV Continue IVF Continue pain control Surgery on board Keep NPO for now Clinically improves . Asthma Asymptomatic GERD Continue IV Pepcid DVT Px on SCDs Code Status FULL CODE Current Inpatient Medications: Current Inpatient Medications Medications (Trade) Dose Ordered Sig/Duke Route Start Time Stop Time Status Last Admin Dose Admin Ioversol (Optiray 320) 100 ml UD PRN IV 01/20/18 00:15 01/24/18 00:14 Dextrose/Lactated Ringer's 1,000 ml @ 75 mls/hr [id number] IV 01/20/18 02:45 02/19/18 02:44 01/20/18 03:17 75 MLS/HR Prochlorperazine Edisylate 5 mg/ Syringe 5 ml @ 5 mls/min Q6H PRN IV 01/20/18 02:45 02/19/18 02:44 Lorazepam (Ativan Inj) 0.5 mg Q4H PRN IV 01/20/18 02:45 02/19/18 02:44 Ampicillin Sodium/ Sulbactam Sodium (Consult) 1 ea UD PRN N/A 01/20/18 09:00 02/19/18 08:59 Fluticasone Propionate (Flonase Nasal [place]) 1 sprays DAILY DAVID 01/20/18 09:00 02/19/18 08:59 01/20/18 08:28 1 SPRAYS Famotidine 20 mg/ Syringe 5 ml @ 2.5 mls/min BID IV 01/20/18 09:00 02/19/18 08:59 01/20/18 08:28 2.5 MLS/MIN Lorazepam 0.5 mg/ Syringe 1 ml @ 1 mls/min Q4H PRN IV 01/20/18 05:00 02/19/18 04:59 Ampicillin Sodium/ Sulbactam Sodium 3000 mg/Sodium Chloride 108 ml @ 216 mls/hr Q6H IV 01/20/18 06:00 01/30/18 05:59 01/20/18 05:51 216 MLS/HR Morphine Sulfate (MoRPHine SULFATE INJ) 2 mg Q3H PRN IV 01/20/18 05:15 02/03/18 02:44 Ketorolac Tromethamine (Toradol Inj) 15 mg Q6H PRN IV 01/20/18 05:15 01/25/18 05:14 Diphenhydramine HCl (Benadryl Inj) 25 mg Q6H PRN IV 01/20/18 05:15 02/19/18 05:14
[2018-01-20] MEDS ORDERED: PIPERACILL/TAZOBAC IV 3.375 GM in D5W 100 ML IV STA (15:34)
[2018-01-20 15:36] VITALS: BP 136/82; PULSE 65; TEMP 37.2; O2SAT 92
--- NOTE | 2018-01-20 15:42 | Medical Consult ---
Consultation Date of Consultation: Jan 20, 2018. Attending Physician: Jt Tobias M.D. History of Present Illness 32 y/o male with LLQ fullness/constipation that began about 10 days ago while on vacation. He came home a few days later, had seen PCP and was given Miralax. His bowels began to move but was still having discomfort. Was referred to the ED and admitted last night for diverticulitis with microperforation. He feels better this afternoon, is passing flatus and having less abdominal pressure. Has not had previous abdominal pain, diverticulitis or chronic constipation. Past Medical/Surgical History Medical Problems: (1) Colitis with complication Status: Acute (2) Free intraperitoneal air Status: Acute (3) Left anterior knee pain Status: Acute (4) Right knee pain Status: Acute Surgical history: left inguinal hernia repair Social History Smoking Status: Never Smoker Drug Use: none Marital Status: Housing Status: lives with family Occupation Status: employed Allergies Coded Allergies: Acetaminophen (Verified Allergy, Intermediate, SWELLS TONGUE, 01/20/18) Oxycodone (Verified Allergy, Intermediate, SWELLS TONGUE, 01/20/18) Indomethacin (Verified Allergy, Unknown, unknown, 01/20/18) Uncoded Allergies: PROBENSEN (Allergy, Unknown, unknown, 04/26/17) Current Inpatient Medications Current Inpatient Medications Medications (Trade) Dose Ordered Sig/Duke Route Start Time Stop Time Status Last Admin Dose Admin Ioversol (Optiray 320) 100 ml UD PRN IV 01/20/18 00:15 01/24/18 00:14 Dextrose/Lactated Ringer's 1,000 ml @ 125 mls/hr Q8H IV 01/20/18 02:45 02/19/18 02:44 01/20/18 03:17 75 MLS/HR Prochlorperazine Edisylate 5 mg/ Syringe 5 ml @ 5 mls/min Q6H PRN IV 01/20/18 02:45 02/19/18 02:44 Lorazepam (Ativan Inj) 0.5 mg Q4H PRN IV 01/20/18 02:45 02/19/18 02:44 Ampicillin Sodium/ Sulbactam Sodium (Consult) 1 ea UD PRN N/A 01/20/18 09:00 02/19/18 08:59 Fluticasone Propionate (Flonase Nasal [place]) 1 sprays DAILY DAVID 01/20/18 09:00 02/19/18 08:59 01/20/18 08:28 1 SPRAYS Famotidine 20 mg/ Syringe 5 ml @ 2.5 mls/min BID IV 01/20/18 09:00 02/19/18 08:59 01/20/18 08:28 2.5 MLS/MIN Lorazepam 0.5 mg/ Syringe 1 ml @ 1 mls/min Q4H PRN IV 01/20/18 05:00 02/19/18 04:59 Ampicillin Sodium/ Sulbactam Sodium 3000 mg/Sodium Chloride 108 ml @ 216 mls/hr Q6H IV 01/20/18 06:00 01/30/18 05:59 01/20/18 12:20 216 MLS/HR Morphine Sulfate (MoRPHine SULFATE INJ) 2 mg Q3H PRN IV 01/20/18 05:15 02/03/18 02:44 Ketorolac Tromethamine (Toradol Inj) 15 mg Q6H PRN IV 01/20/18 05:15 01/25/18 05:14 Diphenhydramine HCl (Benadryl Inj) 25 mg Q6H PRN IV 01/20/18 05:15 02/19/18 05:14 Review of Systems Constitutional: + sweats (night), No fever, No chills Abdomen: + pain, + constipation (recently only), No nausea, No vomiting Physical Exam Date Time Temp Pulse Resp B/P (MAP) Pulse Ox O2 Delivery O2 Flow Rate FiO2 01/20/18 08:35 Room Air 01/20/18 07:07 36.7 44 18 139/76 (97) 96 Room Air 01/20/18 03:20 Room Air 01/20/18 03:20 53 128/81 (97) 01/20/18 02:49 36.9 49 16 164/85 99 Room Air 01/20/18 02:30 36.8 49 16 128/70 98 Room Air 01/20/18 01:41 47 16 126/69 98 Room Air 01/20/18 00:10 51 01/19/18 23:52 70 01/19/18 23:51 97 Room Air 01/19/18 23:26 37.0 63 16 133/76 98 Room Air General Appearance: WD/WN, no apparent distress Respiratory/Chest: no respiratory distress, no accessory muscle use Cardiovascular: regular rate, rhythm, no edema Abdomen/GI: soft, + tenderness (mild LLQ, no guarding, minimal distention) Neurologic/Psych: normal mood/affect, oriented x 3 Skin: normal color, warm/dry Laboratory Results Last 24 Hours Test 01/19/18 23:50 01/20/18 01:20 01/20/18 01:37 White Blood Count 10.08 K/uL Red Blood Count 5.33 M/uL Hemoglobin 16.3 g/dL Hematocrit 44.3 % Mean Corpuscular Volume 83.1 fL Mean Corpuscular Hemoglobin 30.6 pg Mean Corpuscular Hemoglobin Concent 36.8 g/dl Platelet Count 287 K/uL Mean Platelet Volume 10.1 fL Neutrophils (%) (Auto) 59.8 % Lymphocytes (%) (Auto) 23.3 % Monocytes (%) (Auto) 12.8 % Eosinophils (%) (Auto) 3.6 % Basophils (%) (Auto) 0.2 % Neutrophils # (Auto) 6.03 K/uL Lymphocytes # (Auto) 2.35 K/uL Monocytes # (Auto) 1.29 K/uL Eosinophils # (Auto) 0.36 K/uL Basophils # (Auto) 0.02 K/uL RDW Standard Deviation 38.2 fL RDW Coefficient of Variation 12.8 % Immature Granulocyte % (Auto) 0.3 % Immature Granulocyte # (Auto) 0.03 K/uL Sodium Level 142 mmol/L Potassium Level 3.9 mmol/L Chloride Level 108 mmol/L Carbon Dioxide Level 26 mmol/L Anion Gap 8.0 mmol/L Blood Urea Nitrogen 16 mg/dl Creatinine 1.18 mg/dl Est Creatinine Clear Calc Drug Dose 71.0 ml/min Estimated GFR () 92.8 Estimated GFR (Non- 80.0 BUN/Creatinine Ratio 13.3 Random Glucose 94 mg/dl Calcium Level 8.9 mg/dl Magnesium Level 2.0 mg/dl Total Bilirubin 0.6 mg/dl Direct Bilirubin 0.1 mg/dl Aspartate Amino Transf (AST/SGOT) 17 U/L Alanine Aminotransferase (ALT/SGPT) 22 U/L Alkaline Phosphatase 92 U/L Troponin I < 0.015 ng/ml Total Protein 7.4 gm/dl Albumin 3.3 gm/dl Lipase 120 U/L Thyroid Stimulating Hormone (TSH) 2.330 uIu/ml Lyme Disease IgG Antibody NEG Lyme Disease IgM Antibody NEG Urine Color YELLOW Urine Appearance CLEAR Urine pH 7.0 Urine Specific [place] 1.032 Urine Protein NEG Urine Glucose (UA) NEG Urine Ketones NEG Urine Occult Blood NEG Urine Nitrite NEG Urine Bilirubin NEG Urine Urobilinogen NEG Urine Leukocyte Esterase NEG Bedside Lactic Acid Venous 0.75 mmol/L CT IMPRESSION: 1. Acute proximal sigmoid diverticulitis with several small localized air containing walled off perforations. 2. Considerable pericolonic infiltrative change with evidence for superimposed patent urachus with a potential fistulous tract extending to the proximal sigmoid. 3. Fluid-filled rectal sigmoid junction and rectum with an internal septation raises the possibility of a focal additional walled off perforation versus colonic redundancy. 4. No evidence for a percutaneously drainable abscess or collection. The above report was generated using voice recognition software. It may contain grammatical, syntax or spelling errors. Electronically signed by: Venkatesh Lizarraga M.D. 01/20/2018 6:38 AM Dictated Date/Time: 01/20/2018 6:30 AM Assessment & Plan diverticulitis with microperforation no acute abdominal findings continue IV abx, will change to Zosyn keep NPO for another 24-48 hrs, will increase IVF to 150 cc/hr seen with Dr. Nair 01/20/18- see Jameson Hager's note above will be very conservative with advancing diet
[2018-01-20] MEDS ORDERED: PIPERACILL/TAZOBAC CONSULT ACTIVE PRN (15:45)
[2018-01-20] MEDS: PIPERACILL/TAZOBAC IV 3.375 GM in DEXTROSE 5% 100ML 100 ML IV SCH (22:21)
[2018-01-20 23:46] VITALS: BP 129/71; PULSE 43; TEMP 36.8; O2SAT 95
[2018-01-21] MEDS: D5W AND LACTATED RINGERS 1,000 ML IV SCH ×3 (04:45→23:48)
[2018-01-21] MEDS: PIPERACILL/TAZOBAC IV 3.375 GM in DEXTROSE 5% 100ML 100 ML IV SCH ×3 (05:48→22:03)
[2018-01-21 06:03] LABS: BASO % 0.6 %; BASO ABS # 0.04 K/uL (0-0.2); EOS % 5.9 %; EOS ABS # 0.41 K/uL (0-0.5); HEMATOCRIT 40.5 % (42-52); HEMOGLOBIN 14.5 g/dL (14.0-18.0); IG# 0.02 K/uL (0.00-0.02); LYMPH % 26.5 %; LYMPH ABS # 1.85 K/uL (1.2-3.4); MEAN CELL VOLUME 83.3 fL (80-100); MEAN CORPUSCULAR HEMOGLOBIN 29.8 pg (25-34); MEAN CORPUSCULAR HGB CONC 35.8 g/dl (32-36); MEAN PLATELET VOLUME 9.6 fL (7.4-10.4); MONO % 11.5 %; NEUT % 55.2 %; NEUT ABS # 3.85 K/uL (1.4-6.5); PLATELET COUNT 230 K/uL (130-400); RED CELL DISTRIBUTION WIDTH CV 12.6 % (11.5-14.5); RED CELL DISTRIBUTION WIDTH SD 37.9 fL (36.4-46.3); WHITE BLOOD COUNT 6.97 K/uL (4.8-10.8)
[2018-01-21 06:40] LABS: CALCIUM 8.6 mg/dl (8.5-10.1); CREATININE 1.24 mg/dl (0.60-1.40); POTASSIUM 3.8 mmol/L (3.5-5.1)
[2018-01-21 06:49] VITALS: BP 147/84; PULSE 46; TEMP 36.9; O2SAT 96
--- NOTE | 2018-01-21 07:15 | Surgery Progress Note ---
Surgery Progress Note Date of Service Jan 21, 2018. Subjective ++ flatus, + bm taking no pain med afeb, vss Objective Vital Signs: Date Time Temp Pulse Resp B/P (MAP) Pulse Ox O2 Delivery O2 Flow Rate FiO2 01/21/18 06:49 36.9 46 16 147/84 (105) 96 Room Air 01/20/18 23:46 36.8 43 14 129/71 (90) 95 Room Air 01/20/18 23:20 Room Air 01/20/18 19:30 Room Air 01/20/18 16:00 Room Air 01/20/18 15:36 37.2 65 16 136/82 (100) 92 Room Air 01/20/18 08:35 Room Air General Appearance: no apparent distress Respiratory/Chest: no respiratory distress Abdomen: soft, + tenderness (with deep palpation) Laboratory Results: Results Past 24 Hours Test 01/21/18 05:53 Range/Units White Blood Count 6.97 4.8-10.8 K/uL Red Blood Count 4.86 4.7-6.1 M/uL Hemoglobin 14.5 14.0-18.0 g/dL Hematocrit 40.5 42-52 % Mean Corpuscular Volume 83.3 80-100 fL Mean Corpuscular Hemoglobin 29.8 25-34 pg Mean Corpuscular Hemoglobin Concent 35.8 32-36 g/dl Platelet Count 230 130-400 K/uL Mean Platelet Volume 9.6 7.4-10.4 fL Neutrophils (%) (Auto) 55.2 % Lymphocytes (%) (Auto) 26.5 % Monocytes (%) (Auto) 11.5 % Eosinophils (%) (Auto) 5.9 % Basophils (%) (Auto) 0.6 % Neutrophils # (Auto) 3.85 1.4-6.5 K/uL Lymphocytes # (Auto) 1.85 1.2-3.4 K/uL Monocytes # (Auto) 0.80 0.11-0.59 K/uL Eosinophils # (Auto) 0.41 0-0.5 K/uL Basophils # (Auto) 0.04 0-0.2 K/uL RDW Standard Deviation 37.9 36.4-46.3 fL RDW Coefficient of Variation 12.6 11.5-14.5 % Immature Granulocyte % (Auto) 0.3 % Immature Granulocyte # (Auto) 0.02 0.00-0.02 K/uL Sodium Level 140 136-145 mmol/L Potassium Level 3.8 3.5-5.1 mmol/L Chloride Level 106 98-107 mmol/L Carbon Dioxide Level 29 21-32 mmol/L Anion Gap 5.0 3-11 mmol/L Blood Urea Nitrogen 7 7-18 mg/dl Creatinine 1.24 0.60-1.40 mg/dl Est Creatinine Clear Calc Drug Dose 67.5 ml/min Estimated GFR () 87.4 Estimated GFR (Non- 75.4 BUN/Creatinine Ratio 5.3 10-20 Random Glucose 128 70-99 mg/dl Calcium Level 8.6 8.5-10.1 mg/dl Assessment & Plan 01/21/18- acute diverticulitis w/ contained perforation- pain improved will give ice chips today, encourage ambulation- cont IV atbx 4-[address] this adm and will need colonoscopy in future
[2018-01-21] MEDS: FLUTICASONE PROPIONATE NA SPR 16 GM BTL NAE SCH (09:00)
[2018-01-21] MEDS: FAMOTIDINE IV INJ 20 MG in SYRINGE 3 ML IV SCH ×2 (10:20→20:52)
[2018-01-21] MEDS: KETOROLAC TROMETHAMINE 30 MG/ML VIAL IV PRN ×2 (10:23→20:58)
[2018-01-21 15:05] VITALS: BP 153/82; PULSE 58; TEMP 36.9; O2SAT 99
[2018-01-21 16:15] VITALS: O2SAT 99
--- NOTE | 2018-01-21 19:01 | Progress Note ---
Medicine Progress Note Date & Time of Visit: Jan 21, 2018 at 18:54. Subjective Pt was seen and examined Walking in his room with no distress Pt said that his abdominal pain improves, but continue to have some tenderness in his lower abdomen and left side He has been passing gas, no BM Denies any chest pain, palpitation, dizziness and SOB Objective Last 8 Hrs Date Time Temp Pulse Resp B/P (MAP) Pulse Ox O2 Delivery O2 Flow Rate FiO2 01/21/18 15:05 36.9 58 18 153/82 (105) 99 Room Air Physical Exam: General- no acute distress Head- atraumatic Eyes- PERRL, EOMI ENT- oropharynx clear Neck- supple, no JVD Lungs- clear to auscultation Heart- regular rhythm Abdomen- hyperactive bowel sounds, mild tenderness on LLQ with deep palpation Extremities- no pretibial edema, no calf tenderness Neuro- alert, oriented x 3; PERRL, EOMI; no facial palsy Skin- warm & dry Laboratory Results: Last 24 Hours Test 01/21/18 05:53 White Blood Count 6.97 K/uL Red Blood Count 4.86 M/uL Hemoglobin 14.5 g/dL Hematocrit 40.5 % Mean Corpuscular Volume 83.3 fL Mean Corpuscular Hemoglobin 29.8 pg Mean Corpuscular Hemoglobin Concent 35.8 g/dl Platelet Count 230 K/uL Mean Platelet Volume 9.6 fL Neutrophils (%) (Auto) 55.2 % Lymphocytes (%) (Auto) 26.5 % Monocytes (%) (Auto) 11.5 % Eosinophils (%) (Auto) 5.9 % Basophils (%) (Auto) 0.6 % Neutrophils # (Auto) 3.85 K/uL Lymphocytes # (Auto) 1.85 K/uL Monocytes # (Auto) 0.80 K/uL Eosinophils # (Auto) 0.41 K/uL Basophils # (Auto) 0.04 K/uL RDW Standard Deviation 37.9 fL RDW Coefficient of Variation 12.6 % Immature Granulocyte % (Auto) 0.3 % Immature Granulocyte # (Auto) 0.02 K/uL Sodium Level 140 mmol/L Potassium Level 3.8 mmol/L Chloride Level 106 mmol/L Carbon Dioxide Level 29 mmol/L Anion Gap 5.0 mmol/L Blood Urea Nitrogen 7 mg/dl Creatinine 1.24 mg/dl Est Creatinine Clear Calc Drug Dose 67.5 ml/min Estimated GFR () 87.4 Estimated GFR (Non- 75.4 BUN/Creatinine Ratio 5.3 Random Glucose 128 mg/dl Calcium Level 8.6 mg/dl Assessment & Plan Acute proximal sigmoid diverticulitis Present with LLQ abdominal tenderness associated with diarrhea CT abdomen showed acute proximal sigmoid diverticulitis with several small localized air containing walled off perforations No evidence for a percutaneously drainable abscess or collection. Received Dapto and Primaxin in the ER Continue Unasyn IV Continue IVF Continue pain control Surgery on board Keep NPO for now Clinically improves 01/21 Pain improved No BM Starting on ice chips Will repeat CT abdomen Abnormal EKG? EKG on admission showed high degree AV block Repeat EKG showed bradycardia with normal sinus He was very athletic in school Asymptomatic . Asthma Asymptomatic GERD Continue IV Pepcid DVT Px on SCDs Code Status FULL CODE Current Inpatient Medications: Current Inpatient Medications Medications (Trade) Dose Ordered Sig/Duke Route Start Time Stop Time Status Last Admin Dose Admin Ioversol (Optiray 320) 100 ml UD PRN IV 01/20/18 00:15 01/24/18 00:14 Dextrose/Lactated Ringer's 1,000 ml @ 100 mls/hr Q10H IV 01/20/18 02:45 02/19/18 02:44 01/21/18 13:23 100 MLS/HR Prochlorperazine Edisylate 5 mg/ Syringe 5 ml @ 5 mls/min Q6H PRN IV 01/20/18 02:45 02/19/18 02:44 Lorazepam (Ativan Inj) 0.5 mg Q4H PRN IV 01/20/18 02:45 02/19/18 02:44 Fluticasone Propionate (Flonase Nasal [place]) 1 sprays DAILY DAVID 01/20/18 09:00 02/19/18 08:59 01/20/18 08:28 1 SPRAYS Famotidine 20 mg/ Syringe 5 ml @ 2.5 mls/min BID IV 01/20/18 09:00 02/19/18 08:59 01/21/18 10:20 2.5 MLS/MIN Lorazepam 0.5 mg/ Syringe 1 ml @ 1 mls/min Q4H PRN IV 01/20/18 05:00 02/19/18 04:59 Morphine Sulfate (MoRPHine SULFATE INJ) 2 mg Q3H PRN IV 01/20/18 05:15 02/03/18 02:44 Ketorolac Tromethamine (Toradol Inj) 15 mg Q6H PRN IV 01/20/18 05:15 01/25/18 05:14 01/21/18 10:23 15 MG Diphenhydramine HCl (Benadryl Inj) 25 mg Q6H PRN IV 01/20/18 05:15 02/19/18 05:14 Piperacillin Sod/ Tazobactam Sod 3.375 gm/Dextrose 115 ml @ 28.75 mls/ hr Q8H IV 01/20/18 22:00 01/30/18 21:59 01/21/18 13:25 28.75 MLS/HR Miscellaneous Information (Consult) 1 ea UD PRN N/A 01/20/18 15:45 02/19/18 15:44
[2018-01-21] MEDS ORDERED: ALBUT/IPRATROP 3MG/0.5MG NEB 3 ML VIAL INH PRN (22:45)
[2018-01-21 23:38] VITALS: BP 138/74; PULSE 50; TEMP 36.7; O2SAT 97
[2018-01-21 23:40] VITALS: O2SAT 97
[2018-01-22] MEDS: PIPERACILL/TAZOBAC IV 3.375 GM in DEXTROSE 5% 100ML 100 ML IV SCH ×3 (06:08→21:28)
[2018-01-22 07:06] LABS: CALCIUM 8.6 mg/dl (8.5-10.1); CREATININE 1.38 mg/dl (0.60-1.40); POTASSIUM 3.8 mmol/L (3.5-5.1)
--- NOTE | 2018-01-22 07:17 | Surgery Progress Note ---
Surgery Progress Note Date of Service Jan 22, 2018. Subjective afeb, bowels moving some pressure/ lower abd pain Objective Vital Signs: Date Time Temp Pulse Resp B/P (MAP) Pulse Ox O2 Delivery O2 Flow Rate FiO2 01/21/18 23:40 97 Room Air 01/21/18 23:38 36.7 50 14 138/74 (95) 97 Room Air 01/21/18 16:15 99 Room Air 01/21/18 15:05 36.9 58 18 153/82 (105) 99 Room Air 01/21/18 10:30 Room Air General Appearance: no apparent distress Respiratory/Chest: no respiratory distress Abdomen: soft, + tenderness Laboratory Results: Results Past 24 Hours Test 01/22/18 06:14 Range/Units Sodium Level 141 136-145 mmol/L Potassium Level 3.8 3.5-5.1 mmol/L Chloride Level 105 98-107 mmol/L Carbon Dioxide Level 28 21-32 mmol/L Anion Gap 7.0 3-11 mmol/L Blood Urea Nitrogen 7 7-18 mg/dl Creatinine 1.38 0.60-1.40 mg/dl Est Creatinine Clear Calc Drug Dose 60.7 ml/min Estimated GFR () 76.8 Estimated GFR (Non- 66.2 BUN/Creatinine Ratio 5.1 10-20 Random Glucose 100 70-99 mg/dl Calcium Level 8.6 8.5-10.1 mg/dl Assessment & Plan 01/22/18- will try clear liquids today, cont IV atbx- may consider home IV atbx w/ PICC line and ID follow. will check repeat CT tomorrow am overall stable- clears only for now. 01/21/18- acute diverticulitis w/ contained perforation- pain improved will give ice chips today, encourage ambulation- cont IV atbx 4-[address] this adm and will need colonoscopy in future 01/21/18- acute diverticulitis w/ contained perforation- pain improved will give ice chips today, encourage ambulation- cont IV atbx 4-[address] this adm and will need colonoscopy in future
[2018-01-22 07:32] VITALS: BP 145/90; PULSE 50; TEMP 37.1; O2SAT 97
[2018-01-22] MEDS: FAMOTIDINE IV INJ 20 MG in SYRINGE 3 ML IV SCH ×2 (08:59→21:28)
[2018-01-22] MEDS: FLUTICASONE PROPIONATE NA SPR 16 GM BTL NAE SCH (08:59)
[2018-01-22] MEDS: D5W AND LACTATED RINGERS 1,000 ML IV SCH ×2 (09:40→19:56)
[2018-01-22 15:52] VITALS: BP 142/84; PULSE 50; TEMP 37.2; O2SAT 97
--- NOTE | 2018-01-22 16:35 | Progress Note ---
Medicine Progress Note Date & Time of Visit: Jan 22, 2018 at 16:31. Subjective Pt was seen and examined Lying in bed with no distress Pt said that abdominal pain improves He tolerates clear liquid diet He said that he had BM with small amount stools that helps with the pain Denies any chest pain, palpitation, dizziness and SOB Objective Last 8 Hrs Date Time Temp Pulse Resp B/P (MAP) Pulse Ox O2 Delivery O2 Flow Rate FiO2 01/22/18 15:52 37.2 50 18 142/84 (103) 97 Room Air 01/22/18 09:00 Room Air Physical Exam: General- no acute distress Head- atraumatic Eyes- PERRL, EOMI ENT- oropharynx clear Neck- supple, no JVD Lungs- clear to auscultation Heart- regular rhythm Abdomen- normal bowel sounds, , mild tenderness on LLQ with deep palpation Extremities- no pretibial edema, no calf tenderness Neuro- alert, oriented x 3; PERRL, EOMI; no facial palsy Skin- warm & dry Laboratory Results: Last 24 Hours Test 01/22/18 06:14 Sodium Level 141 mmol/L Potassium Level 3.8 mmol/L Chloride Level 105 mmol/L Carbon Dioxide Level 28 mmol/L Anion Gap 7.0 mmol/L Blood Urea Nitrogen 7 mg/dl Creatinine 1.38 mg/dl Est Creatinine Clear Calc Drug Dose 60.7 ml/min Estimated GFR () 76.8 Estimated GFR (Non- 66.2 BUN/Creatinine Ratio 5.1 Random Glucose 100 mg/dl Calcium Level 8.6 mg/dl Assessment & Plan Acute proximal sigmoid diverticulitis Present with LLQ abdominal tenderness associated with diarrhea CT abdomen showed acute proximal sigmoid diverticulitis with several small localized air containing walled off perforations No evidence for a percutaneously drainable abscess or collection. Received Dapto and Primaxin in the ER Continue Unasyn IV Continue IVF Continue pain control Surgery on board Keep NPO for now Clinically improves 01/22 Pain improved after BM Tolerated clear liquid diet Continue IV abx Repeat CT abdomen in am Abnormal EKG? EKG on admission showed high degree AV block Repeat EKG showed bradycardia with normal sinus He was very athletic in school Asymptomatic . Asthma Asymptomatic GERD Continue IV Pepcid DVT Px on SCDs Code Status FULL CODE Current Inpatient Medications: Current Inpatient Medications Medications (Trade) Dose Ordered Sig/Duke Route Start Time Stop Time Status Last Admin Dose Admin Ioversol (Optiray 320) 100 ml UD PRN IV 01/20/18 00:15 01/24/18 00:14 Dextrose/Lactated Ringer's 1,000 ml @ 100 mls/hr Q10H IV 01/20/18 02:45 02/19/18 02:44 01/22/18 09:40 100 MLS/HR Prochlorperazine Edisylate 5 mg/ Syringe 5 ml @ 5 mls/min Q6H PRN IV 01/20/18 02:45 02/19/18 02:44 Lorazepam (Ativan Inj) 0.5 mg Q4H PRN IV 01/20/18 02:45 02/19/18 02:44 Fluticasone Propionate (Flonase Nasal [place]) 1 sprays DAILY DAVID 01/20/18 09:00 02/19/18 08:59 01/20/18 08:28 1 SPRAYS Famotidine 20 mg/ Syringe 5 ml @ 2.5 mls/min BID IV 01/20/18 09:00 02/19/18 08:59 01/22/18 08:59 2.5 MLS/MIN Lorazepam 0.5 mg/ Syringe 1 ml @ 1 mls/min Q4H PRN IV 01/20/18 05:00 02/19/18 04:59 Morphine Sulfate (MoRPHine SULFATE INJ) 2 mg Q3H PRN IV 01/20/18 05:15 02/03/18 02:44 Ketorolac Tromethamine (Toradol Inj) 15 mg Q6H PRN IV 01/20/18 05:15 01/25/18 05:14 01/21/18 20:58 15 MG Diphenhydramine HCl (Benadryl Inj) 25 mg Q6H PRN IV 01/20/18 05:15 02/19/18 05:14 Piperacillin Sod/ Tazobactam Sod 3.375 gm/Dextrose 115 ml @ 28.75 mls/ hr Q8H IV 01/20/18 22:00 01/30/18 21:59 01/22/18 13:39 28.75 MLS/HR Miscellaneous Information (Consult) 1 ea UD PRN N/A 01/20/18 15:45 02/19/18 15:44 Albuterol/ Ipratropium (Duoneb) 3 ml Q2H PRN INH 01/21/18 22:45 02/20/18 22:44
[2018-01-22 23:39] VITALS: BP 130/74; PULSE 55; TEMP 36.9; O2SAT 98
[2018-01-23 00:15] VITALS: O2SAT 98
[2018-01-23] MEDS ORDERED: OPTIRAY 320 IV PRN (06:00)
[2018-01-23] MEDS: PIPERACILL/TAZOBAC IV 3.375 GM in DEXTROSE 5% 100ML 100 ML IV SCH ×3 (06:11→21:02)
[2018-01-23 07:01] VITALS: BP 145/84; PULSE 51; TEMP 36.8; O2SAT 97
--- NOTE | 2018-01-23 07:08 | Surgery Progress Note ---
Surgery Progress Note Date of Service Jan 23, 2018. Subjective pt had CT- relatively asx- tolerating clear liquids had bm with contrast Objective Vital Signs: Date Time Temp Pulse Resp B/P (MAP) Pulse Ox O2 Delivery O2 Flow Rate FiO2 01/23/18 07:01 36.8 51 16 145/84 (104) 97 Room Air 01/23/18 00:15 98 Room Air 01/22/18 23:39 36.9 55 16 130/74 (92) 98 Room Air 01/22/18 15:52 37.2 50 18 142/84 (103) 97 Room Air 01/22/18 15:20 Room Air 01/22/18 09:00 Room Air 01/22/18 07:32 37.1 50 16 145/90 (108) 97 Room Air General Appearance: no apparent distress Respiratory/Chest: no respiratory distress Abdomen: soft (lower abd pain to deep palpation) Assessment & Plan 01/23/18- stable- CT shows areas of gas/fluid- will check report- pending cont clear liquids only- may need PICC line and TPN/IV atbx 2 wks to try to avoid urgent operation w/ infection in pelvis- will need to be in hospital at least 3-5 days. may need perc drainage 01/22/18- will try clear liquids today, cont IV atbx- may consider home IV atbx w/ PICC line and ID follow. will check repeat CT tomorrow am overall stable- clears only for now. 01/21/18- acute diverticulitis w/ contained perforation- pain improved will give ice chips today, encourage ambulation- cont IV atbx 4-[address] this adm and will need colonoscopy in future 01/22/18- will try clear liquids today, cont IV atbx- may consider home IV atbx w/ PICC line and ID follow. will check repeat CT tomorrow am overall stable- clears only for now. 01/21/18- acute diverticulitis w/ contained perforation- pain improved will give ice chips today, encourage ambulation- cont IV atbx 4-[address] this adm and will need colonoscopy in future
--- NOTE | 2018-01-23 07:23 | DIAGNOSTIC IMAGING REPORT ---
ABDOMEN AND PELVIS CT WITH IV AND ORAL CONTRAST CT DOSE: 281.62 mGy.cm HISTORY: Acute left lower quadrant abdominal pain with diverticulitis. diverticulitis TECHNIQUE: Multiaxial CT images of the abdomen and pelvis were performed following the use of intravenous and oral contrast. A dose lowering technique was utilized adhering to the principles of ALARA. COMPARISON STUDY: CT abdomen and pelvis 01/20/2018 FINDINGS: Lung bases are clear. Imaged inferior cardiac chambers are unremarkable. Gallbladder is mildly contracted. 6 mm hypodense lesion of the posterior right hepatic lobe suggests probable hepatic cyst. Liver is otherwise unremarkable. Spleen is mildly enlarged, 13.2 cm. Pancreas and adrenal glands are unremarkable. Kidneys appear to be within normal limits. There is mild urothelial enhancement about the mid and distal portions of the left ureter. Mild urinary bladder distention. There is wall thickening about the anterosuperior bladder with a a suggested fistulous or sinus tract extending from the sigmoid colon to the bladder dome, image 319 series 3 which is air-containing. No definite urachal remnant identified. Aorta and IVC appear to be within normal limits. Patent portal vein. No bowel obstruction. Oral contrast extends to the descending sigmoid colon junction. Terminal ileum and opacified appendix appear unremarkable. Circumferential wall thickening involving the majority of the sigmoid colon with inflammation about sigmoid diverticula compatible with acute sigmoid diverticulitis. Additionally, there is wall thickening of the rectum and distal sigmoid colon with marked inflammation of the sigmoid mesocolon. Additionally, there is thickening of the peritoneal reflections with mild free fluid. Extraluminal air is redemonstrated adjacent to the sigmoid colon compatible with perforation. No drainable fluid collections are identified. There is no significant change from comparison study. Prominent lymph nodes of the sigmoid mesocolon are likely reactive. Bones appear to be intact. IMPRESSION: 1. Redemonstration of complicated acute sigmoid diverticulitis with multiple foci of extraluminal air within the adjacent sigmoid mesocolon compatible with perforation. There is marked associated inflammation and mild pericolonic free fluid without drainable abscess identified. 2. Again, there is a suggested sinus tract or fistula seen extending towards the dome of the urinary bladder. No air is seen within the urinary bladder lumen. 3. No bowel obstruction. Electronically signed by: Calin Moses M.D. 01/23/2018 7:22 AM Dictated Date/Time: 01/23/2018 7:09 AM
[2018-01-23] MEDS: FLUTICASONE PROPIONATE NA SPR 16 GM BTL NAE SCH (09:12)
[2018-01-23] MEDS: FAMOTIDINE IV INJ 20 MG in SYRINGE 3 ML IV SCH ×2 (09:12→21:02)
[2018-01-23] MEDS: D5W AND LACTATED RINGERS 1,000 ML IV SCH ×2 (09:12→23:46)
[2018-01-23 13:28] VITALS: Ht 160 cm; Wt 59.3 kg
[2018-01-23 15:44] VITALS: BP 138/82; PULSE 62; TEMP 36.9; O2SAT 98
[2018-01-23] MEDS: KETOROLAC TROMETHAMINE 30 MG/ML VIAL IV PRN (15:52)
--- NOTE | 2018-01-23 17:17 | Progress Note ---
Medicine Progress Note Date & Time of Visit: Jan 23, 2018 at 17:07. Subjective Pt was seen and examined Lying in bed with no distress Pt said that he is having tingling in his right arm after the picc line placed few minutes ago Pt said that pain improved Tolerated clear liquid diet Denies any fever, chest pain, palpitation, dizziness and SOB Objective Last 8 Hrs Date Time Temp Pulse Resp B/P (MAP) Pulse Ox O2 Delivery O2 Flow Rate FiO2 01/23/18 15:44 36.9 62 16 138/82 (100) 98 Room Air Physical Exam: General- no acute distress Head- atraumatic Eyes- PERRL, EOMI ENT- oropharynx clear Neck- supple, no JVD Lungs- clear to auscultation Heart- regular rhythm Abdomen- hyperactive bowel sounds, mild tenderness on LLQ with deep palpation Extremities- no pretibial edema, no calf tenderness Neuro- alert, oriented x 3; PERRL, EOMI; no facial palsy Skin- warm & dry Assessment & Plan Acute proximal sigmoid diverticulitis Present with LLQ abdominal tenderness associated with diarrhea CT abdomen showed acute proximal sigmoid diverticulitis with several small localized air containing walled off perforations No evidence for a percutaneously drainable abscess or collection. Received Dapto and Primaxin in the ER Continue Unasyn IV Continue IVF Continue pain control Surgery on board Keep NPO for now Clinically improves 01/23 Pain improved after BM Tolerated clear liquid diet Repeat CT abdomen showed redemonstration of complicated acute sigmoid diverticulitis with multiple foci of extraluminal air within the adjacent sigmoid mesocolon compatible with perforation. Finding discussed with Surgeon Dr. Nair Recommended to continue conservative management Continue IV abx Will need 2 weeks course of abx PICC line placed today Will consult ID for appropriate IV abx on discharge over the Zosyn that is q6H Might need TPN supplement Continue monitor Abnormal EKG? EKG on admission showed high degree AV block Repeat EKG showed bradycardia with normal sinus He was very athletic in school Asymptomatic . Asthma Asymptomatic GERD Continue IV Pepcid DVT Px on SCDs Code Status FULL CODE Disposition Will need 4-5 more days before discharge Current Inpatient Medications: Current Inpatient Medications Medications (Trade) Dose Ordered Sig/Duke Route Start Time Stop Time Status Last Admin Dose Admin Ioversol (Optiray 320) 100 ml UD PRN IV 01/20/18 00:15 01/24/18 00:14 Dextrose/Lactated Ringer's 1,000 ml @ 75 mls/hr [id number] IV 01/20/18 02:45 02/19/18 02:44 01/23/18 09:12 75 MLS/HR Prochlorperazine Edisylate 5 mg/ Syringe 5 ml @ 5 mls/min Q6H PRN IV 01/20/18 02:45 02/19/18 02:44 Lorazepam (Ativan Inj) 0.5 mg Q4H PRN IV 01/20/18 02:45 02/19/18 02:44 Fluticasone Propionate (Flonase Nasal [place]) 1 sprays DAILY DAVID 01/20/18 09:00 02/19/18 08:59 01/23/18 09:12 1 SPRAYS Famotidine 20 mg/ Syringe 5 ml @ 2.5 mls/min BID IV 01/20/18 09:00 02/19/18 08:59 01/23/18 09:12 2.5 MLS/MIN Lorazepam 0.5 mg/ Syringe 1 ml @ 1 mls/min Q4H PRN IV 01/20/18 05:00 02/19/18 04:59 Morphine Sulfate (MoRPHine SULFATE INJ) 2 mg Q3H PRN IV 01/20/18 05:15 02/03/18 02:44 Ketorolac Tromethamine (Toradol Inj) 15 mg Q6H PRN IV 01/20/18 05:15 01/25/18 05:14 01/23/18 15:52 15 MG Diphenhydramine HCl (Benadryl Inj) 25 mg Q6H PRN IV 01/20/18 05:15 02/19/18 05:14 Piperacillin Sod/ Tazobactam Sod 3.375 gm/Dextrose 115 ml @ 28.75 mls/ hr Q8H IV 01/20/18 22:00 01/30/18 21:59 01/23/18 14:07 28.75 MLS/HR Miscellaneous Information (Consult) 1 ea UD PRN N/A 01/20/18 15:45 02/19/18 15:44 Albuterol/ Ipratropium (Duoneb) 3 ml Q2H PRN INH 01/21/18 22:45 02/20/18 22:44 Ioversol (Optiray 320) 100 ml UD PRN IV 01/23/18 06:00 01/27/18 05:59 Montelukast Sodium (Singulair Tab) 10 mg DAILY PO 01/24/18 09:00 02/23/18 08:59 Heparin Sodium (Porcine) (Heparin 10 Unit/ ml 5 ml Flush) 5 ml PRN PRN FLUSH 01/23/18 11:45 02/22/18 11:44
[2018-01-23 23:40] VITALS: BP 127/82; PULSE 53; TEMP 36.6; O2SAT 95
[2018-01-24] MEDS: PIPERACILL/TAZOBAC IV 3.375 GM in DEXTROSE 5% 100ML 100 ML IV SCH ×3 (06:32→21:46)
[2018-01-24 07:31] VITALS: BP 147/94; PULSE 60; TEMP 36.7; O2SAT 96
--- NOTE | 2018-01-24 07:31 | Surgery Progress Note ---
Surgery Progress Note Date of Service Jan 24, 2018. Subjective feeling well, minimal midline discomfort, bowels moving, some night sweats Objective Vital Signs: Date Time Temp Pulse Resp B/P (MAP) Pulse Ox O2 Delivery O2 Flow Rate FiO2 01/24/18 00:00 Room Air 01/23/18 23:40 36.6 53 16 127/82 (97) 95 Room Air 01/23/18 15:45 Room Air 01/23/18 15:44 36.9 62 16 138/82 (100) 98 Room Air 01/23/18 07:40 Room Air Abdomen: non distended, soft, + tenderness (minimal midline) Assessment & Plan diverticulitis with microperforation has PICC, await ID consult for extended abx keep on clears, considering TPN repeat CT with similar findings, not yet developed into an abscess 01/24/18- will begin tpn for several days and plan for home antibiotics IV for total of 2-3 weeks- may need IR drainage- has [employer] insurance will discuss with [facility] - f/u Colorectal surgery Bridget murphy/ Brianda Maharaj prob here until Tue/Sat
[2018-01-24] MEDS ORDERED: TPN/PPN CONSULT PHARMACY PRN (07:45)
[2018-01-24] MEDS: FAMOTIDINE IV INJ 20 MG in SYRINGE 3 ML IV SCH (08:25)
[2018-01-24] MEDS: FLUTICASONE PROPIONATE NA SPR 16 GM BTL NAE SCH (08:25)
[2018-01-24] MEDS: MONTELUKAST SOD 10 MG TAB PO SCH (08:26)
[2018-01-24 10:55] LABS: CALCIUM 8.8 mg/dl (8.5-10.1); CREATININE 1.44 mg/dl (0.60-1.40); PHOSPHORUS 2.5 mg/dl (2.5-4.9); POTASSIUM 3.8 mmol/L (3.5-5.1)
[2018-01-24] MEDS: D5W AND LACTATED RINGERS 1,000 ML IV SCH (12:06)
--- NOTE | 2018-01-24 12:16 | Pharmacy Progress Note ---
Parenteral Nutrition Consult Date of Service Jan 24, 2018. Scope Pharmacy has been consulted to manage parenteral nutrition orders and order appropriate labs. As part of the Nutrition Support Team guidelines, pharmacy will work in conjunction with dietary when determining the patients caloric needs. Subjective The patient is a 32 year old male admitted on Jan 20, 2018 at 02:20 for Colitis. Patient is to receive parenteral nutrition for diverticulitis w/ perforation. Pertinent PMH: N/A Objective Height (Feet): 5 Height (Inches): 3.00 Weight (Kilograms): 60.900 Diet: Clear Liquid Vascular Access: PICC Intake & Output (Last 72 Hr): 01/23/18 01/24/18 01/25/18 08:00 08:00 08:00 Intake Total 4060 ml 3146 ml Output Total 2450 ml 2275 ml Balance 1610 ml 871 ml Laboratory Data (Last 24 Hr): Test 01/24/18 10:14 Blood Urea Nitrogen 6 mg/dl (7-18) Calcium Level 8.8 mg/dl (8.5-10.1) Carbon Dioxide Level 26 mmol/L (21-32) Chloride Level 106 mmol/L (98-107) Creatinine 1.44 mg/dl (0.60-1.40) Magnesium Level 1.8 mg/dl (1.8-2.4) Phosphorus Level 2.5 mg/dl (2.5-4.9) Potassium Level 3.8 mmol/L (3.5-5.1) Random Glucose 97 mg/dl (70-99) Sodium Level 139 mmol/L (136-145) Triglycerides Level 102 mg/dl (0-150) Recent Pertinent Medications: Famotidine 20 mg BID Zosyn D5 LR @ 75 ml/hr Nutrition Assessment Please refer to the Notes section of the EMR for the most recent sld inclusion teacher note. Assessment 32 yo male with diverticulitis with perforation tolerating clear liquid diet. Consulted for tpn to maintain nutrition/electrolyte status. Patient to be on IV antibiotics for infection. F: Currently on D5LR @ 75 ml/hr (provides 90 gm of dextrose), zosyn q8H E: Within normal limits N: Albumin 3.3 (01/19), TG 102, BSGs normal; clear liquid diet ordered, tolerating Plan For day 1 of PN administration, the following will be ordered: Macronutrients Amino acids 100 grams/day Dextrose 150 grams/day Lipids 50 grams/day Micronutrients Combined electrolytes 20 mL - contains 35 mEq Na, 20 meq K, 4.5 mEq Ca, 5 mEq Mg , 35 mEq Cl, 29.5 mEq acetate per 20 mL Sodium phosphate 21 MMol Multivitamins 10 mL Trace Elements 10 mL Additional additives: Famotidine 40 mg Total volume 2000 mL to be infused over 24 hrs will provide 1410 kcal/day Final osmolarity 933 mOsm/L (maximum for PPN is 600 mOsm/L) Labs to be ordered per PN order protocol Pharmacy will follow and adjust parenteral nutrition orders on a daily basis. Thank you.
--- NOTE | 2018-01-24 13:47 | Progress Note ---
Internal Med Progress Note Date of Service: Jan 24, 2018. Provider Documentation: SUBJECTIVE: The patient was seen and examined in medical floor He was admitted with them colitis secondary to microabscess He has been on n.p.o. and IV antibiotics Clinically better today but will need to continue IV antibiotic and parenteral nutrition for a few days Denies any fever chills or rigors OBJECTIVE: Vital Signs-as noted below Exam: General-no apparent distress at rest Eyes-normal ENT-normal Neck-supple Lungs-clear to auscultate bilaterally Heart-regular, no murmur appreciated Abdomen-benign soft,, mildly tender left lower quadrant bowel sounds present, Extremities-no edema Neuro-alert awake and oriented 3, Lab data as noted below. ASSESSMENT & PLAN: Acute proximal sigmoid diverticulitis with microabscesses and microperforation Present with LLQ abdominal tenderness associated with diarrhea CT abdomen showed acute proximal sigmoid diverticulitis with several small localized air containing walled off perforations No evidence for a percutaneously drainable abscess or collection. Received Dapto and Primaxin in the ER Changed to intravenous Unasyn later on and now has been on IV Zosyn Continue IVF Surgery on board-appreciate input::plan for home antibiotics IV for total of 2-3 weeks- may need IR drainage- has [employer] insurance will discuss with [facility] - f/u Colorectal surgery Bridget murphy/ Brianda Maharaj prob here until Tue/Sat Has been n.p.o. and started on TPN from today which will be continued for a few days Clinically improves Repeat CT abdomen showed redemonstration of complicated acute sigmoid diverticulitis with multiple foci of extraluminal air within the adjacent sigmoid mesocolon compatible with perforation. ID input appreciated PICC line placed and IV antibiotics will be continued for 2-3 weeks as per ID We will continue current management Abnormal EKG? EKG on admission showed high degree AV block Repeat EKG showed bradycardia with normal sinus He was very athletic in school Asymptomatic .Asthma Asymptomatic Continue albuterol inhaler as needed GERD Continue IV Pepcid for now DVT Px on SCDs Code Status FULL CODE Disposition Will need 4-5 more days before discharge Vital Signs: Date Time Temp Pulse Resp B/P (MAP) Pulse Ox O2 Delivery O2 Flow Rate FiO2 01/28/18 15:14 36.6 61 18 131/81 (98) 98 Room Air 01/28/18 06:44 36.6 56 16 137/85 (102) 97 Room Air 01/28/18 00:00 Room Air 01/27/18 23:22 36.5 57 16 138/81 (100) 98 Room Air 01/27/18 20:00 Room Air Lab Results: Results Past 24 Hours Test 01/27/18 18:05 01/28/18 06:09 Range/Units Bedside Glucose 105 70-99 mg/dl Sodium Level 138 136-145 mmol/L Potassium Level 4.0 3.5-5.1 mmol/L Chloride Level 106 98-107 mmol/L Carbon Dioxide Level 23 21-32 mmol/L Anion Gap 9.0 3-11 mmol/L Blood Urea Nitrogen 20 7-18 mg/dl Creatinine 0.98 0.60-1.40 mg/dl Est Creatinine Clear Calc Drug Dose 85.5 ml/min Estimated GFR () 116.1 Estimated GFR (Non- 100.2 BUN/Creatinine Ratio 20.4 10-20 Random Glucose 89 70-99 mg/dl Calcium Level 8.6 8.5-10.1 mg/dl Phosphorus Level 3.0 2.5-4.9 mg/dl Magnesium Level 1.9 1.8-2.4 mg/dl Triglycerides Level 195 0-150 mg/dl
--- NOTE | 2018-01-24 14:46 | Medical Consult ---
Consultation Date of Consultation: Jan 24, 2018. Attending Physician: Kyler Sebastian M.D. Reason for Consultation: Appropriate antibiotics upon discharge History of Present Illness 32-year-old male with history of gout, otherwise in good health was well until 3 -4 days prior to admission when he notice onset of slowly worsening lower quadrant abdominal pain associated with constipation. He took a laxative with relief of constipation, but pain steadily worsened and he came to the emergency department. He underwent CT scan, reviewed by me, which showed evidence of sigmoid diverticulitis with micro perforation. Has been treated with IV Zosyn with clinical improvement. Patient probably going to start TPN for a time. Plans for possible intervention later on with [facility] surgeon. Currently afebrile, no significant pain, tolerating antibiotic without apparent difficulty. No other new complaints. Past Medical/Surgical History Past Medical/Surgical History gout, inguinal hernia Family History Noncontributory Social History Smoking Status: Never Smoker Drug Use: none Marital Status: Housing Status: lives with family Occupation Status: employed Allergies Coded Allergies: Acetaminophen (Verified Allergy, Intermediate, SWELLS TONGUE, 01/20/18) Oxycodone (Verified Allergy, Intermediate, SWELLS TONGUE, 01/20/18) Indomethacin (Verified Allergy, Unknown, unknown, 01/20/18) Uncoded Allergies: PROBENSEN (Allergy, Unknown, unknown, 04/26/17) Current Inpatient Medications Current Inpatient Medications Medications (Trade) Dose Ordered Sig/Duke Route Start Time Stop Time Status Last Admin Dose Admin Dextrose/Lactated Ringer's 1,000 ml @ 75 mls/hr [id number] IV 01/20/18 02:45 01/24/18 15:59 01/24/18 12:06 75 MLS/HR Prochlorperazine Edisylate 5 mg/ Syringe 5 ml @ 5 mls/min Q6H PRN IV 01/20/18 02:45 02/19/18 02:44 Lorazepam (Ativan Inj) 0.5 mg Q4H PRN IV 01/20/18 02:45 02/19/18 02:44 Fluticasone Propionate (Flonase Nasal [place]) 1 sprays DAILY DAVID 01/20/18 09:00 02/19/18 08:59 01/23/18 09:12 1 SPRAYS Lorazepam 0.5 mg/ Syringe 1 ml @ 1 mls/min Q4H PRN IV 01/20/18 05:00 02/19/18 04:59 Morphine Sulfate (MoRPHine SULFATE INJ) 2 mg Q3H PRN IV 01/20/18 05:15 02/03/18 02:44 Ketorolac Tromethamine (Toradol Inj) 15 mg Q6H PRN IV 01/20/18 05:15 01/25/18 05:14 01/23/18 15:52 15 MG Diphenhydramine HCl (Benadryl Inj) 25 mg Q6H PRN IV 01/20/18 05:15 02/19/18 05:14 Piperacillin Sod/ Tazobactam Sod 3.375 gm/Dextrose 115 ml @ 28.75 mls/ hr Q8H IV 01/20/18 22:00 01/30/18 21:59 01/24/18 13:51 28.75 MLS/HR Miscellaneous Information (Consult) 1 ea UD PRN N/A 01/20/18 15:45 02/19/18 15:44 Albuterol/ Ipratropium (Duoneb) 3 ml Q2H PRN INH 01/21/18 22:45 02/20/18 22:44 Ioversol (Optiray 320) 100 ml UD PRN IV 01/23/18 06:00 01/27/18 05:59 Montelukast Sodium (Singulair Tab) 10 mg DAILY PO 01/24/18 09:00 02/23/18 08:59 01/24/18 08:26 10 MG Heparin Sodium (Porcine) (Heparin 10 Unit/ ml 5 ml Flush) 5 ml PRN PRN FLUSH 01/23/18 11:45 02/22/18 11:44 01/24/18 10:19 5 ML Nutrition (Parenteral) 0 ml @ 0 mls/hr TODAY@1600 IV 01/24/18 16:00 01/25/18 15:59 Dextrose 1,000 ml @ 0 mls/hr Q0M PRN IV 01/24/18 16:00 02/23/18 15:59 Miscellaneous Information (Pharmacy Tpn/ Ppn Consult Active) 1 ea UD PRN N/A 01/24/18 07:45 02/23/18 07:44 Miscellaneous (Stop Order) 1 ea ONE ONCE N/A 01/24/18 15:59 01/24/18 16:00 Review of Systems Constitutional: No fever Eyes: No problem reported ENT: No problem reported Respiratory: No problem reported Cardiovascular: No problem reported Abdomen: + pain, + nausea, + constipation, No GI bleeding Musculoskeletal: No problem reported Genitourinary - Male: No problem reported Neurologic: No problem reported Psychiatric: No problem reported Endocrine: No problem reported Hematologic / Lymphatic: No problem reported Integumentary: No problem reported Allergic / Immunologic: No problem reported Physical Exam Date Time Temp Pulse Resp B/P (MAP) Pulse Ox O2 Delivery O2 Flow Rate FiO2 01/24/18 08:37 Room Air 01/24/18 07:31 36.7 60 16 147/94 (111) 96 Room Air 01/24/18 00:00 Room Air 01/23/18 23:40 36.6 53 16 127/82 (97) 95 Room Air 01/23/18 15:45 Room Air 01/23/18 15:44 36.9 62 16 138/82 (100) 98 Room Air General Appearance: WD/WN, no apparent distress Head: normocephalic, atraumatic Eyes: normal inspection, EOMI, sclerae normal ENT: normal ENT inspection, hearing grossly normal, pharynx normal Neck: supple, no adenopathy, thyroid normal, trachea midline Respiratory/Chest: chest non-tender, lungs clear, normal breath sounds, no respiratory distress Cardiovascular: regular rate, rhythm, no gallop, no murmur Abdomen/GI: normal bowel sounds, soft, no organomegaly, + tenderness (Mild lower quadrant) Back: normal inspection, no CVA tenderness Extremities/Musculoskelatal: normal inspection, no calf tenderness, normal capillary refill, pelvis stable Neurologic/Psych: alert, normal mood/affect, oriented x 3 Skin: normal color, warm/dry, no rash Lymphatic: no adenopathy Laboratory Results RUN DATE: 01/21/18 [facility] LAB PAGE 1 RUN TIME: 729 Specimen Inquiry PATIENT: JAYDE RAMSAY LOC: W U # : [id number] AGE/SX: 32/M ROOM: [facility] REG : 01/20/[address]: Jt Tobias M.D. : 1985 BED: 1 DIS : STATUS: ADM IN TLOC: SPEC #: [id number] OSMIN: 01/20/18 STATUS: RES REQ #: [id number] RECD: 01/20/18 [facility] DR: Melanie Rea PA-C SOURCE: BLOOD ENTR: 01/20/18-124 [facility] DR: Suzanne Blanco M.D. (MEDICAL) SPDESC: Rei Khan MD ORDERED: BLOOD CULTURE Procedure Result Verified Site BLD CULT Preliminary 01/21/18 NO GROWTH TO DATE. Last 24 Hours Test 01/24/18 10:14 Sodium Level 139 mmol/L Potassium Level 3.8 mmol/L Chloride Level 106 mmol/L Carbon Dioxide Level 26 mmol/L Anion Gap 7.0 mmol/L Blood Urea Nitrogen 6 mg/dl Creatinine 1.44 mg/dl Est Creatinine Clear Calc Drug Dose 58.2 ml/min Estimated GFR () 72.9 Estimated GFR (Non- 62.9 BUN/Creatinine Ratio 3.8 Random Glucose 97 mg/dl Calcium Level 8.8 mg/dl Phosphorus Level 2.5 mg/dl Magnesium Level 1.8 mg/dl Triglycerides Level 102 mg/dl Patient Name: JAYDE RAMSAY Unit Number: [id number] Dictated: 01/20/18629 Transcribed: 01/20/18629 MS Printed Date/Time: [~ rep prt dt]/[~ rep prt tm] [~ rep ct labl] - [~ rep ct ivnm] [facility] [place] [address] Dictated: 01/20/18629 Transcribed: 01/20/18629 MS Printed Date/Time: [~ rep prt dt]/[~ rep prt tm] [~ rep ct labl] - [~ rep ct ivnm] [~ rep ct add3]] ABD/PELVIS IV CONTRAST ONLY CT DOSE: 280.39 mGy.cm HISTORY: Pain. Nausea. lower abd pain TECHNIQUE: Multiaxial CT images of the abdomen and pelvis were performed following the use of intravenous contrast. A dose lowering technique was utilized adhering to the principles of ALARA. COMPARISON STUDY: None. FINDINGS: Lung bases are clear. Liver spleen and pancreas are unremarkable. Bowel pattern within the abdomen suggests mild nonobstructive ileus. There are several small scattered mesenteric nodes. Evaluation of the pelvis is problematic due to the absence of oral contrast. There is a fluid-filled rectosigmoid with potential redundancy of the rectum versus an internal septation. At the more proximal aspect of the sigmoid is evidence for acute diverticulitis. There are 2 walled off air contained perforation is. There is no evidence for an associated drainable abscess or collection at these sites. There is wall thickening of the proximal sigmoid with considerable pericolonic infiltrative change. His possibility of patent urachus with an air containing tract extending to the thickened wall of the anterior right middle to mid sigmoid. This again raises the possibility of fistulous tract site. There is no evidence of bowel distention area there are several small reactive mesenteric and pelvic nodes. Inguinal regions are unremarkable. IMPRESSION: 1. Acute proximal sigmoid diverticulitis with several small localized air containing walled off perforations. 2. Considerable pericolonic infiltrative change with evidence for superimposed patent urachus with a potential fistulous tract extending to the proximal sigmoid. 3. Fluid-filled rectal sigmoid junction and rectum with an internal septation raises the possibility of a focal additional walled off perforation versus colonic redundancy. 4. No evidence for a percutaneously drainable abscess or collection. The above report was generated using voice recognition software. It may contain grammatical, syntax or spelling errors. Electronically signed by: Venkatesh Lizarraga M.D. 01/20/2018 6:38 AM Dictated Date/Time: 01/20/2018 6:30 AM The status of this report is Signed. Draft = Not yet reviewed or approved by Radiologist. Signed = Reviewed and approved by Radiologist. <AttendingPhy>Danny Arboleda MD</AttendingPhy> <FamilyPhy>Suzanne Blanco M.D. (MEDICAL)</FamilyPhy> <PrimaryPhy>Suzanne Blanco M.D. (MEDICAL)</ PrimaryPhy> <UnitNumber>[id number]</UnitNumber> <VisitNumber>[id number]</ VisitNumber> <PatientName>JAYDE RAMSAY</PatientName> <DateOfBirth>1985 </DateOfBirth> <Location>[facility]</Location> <ServiceDate>01/19/18</ServiceDate> < MNE>ESINDI</MNE> <OrderingPhy>Melanie Rea PA-C</OrderingPhy> < OrderingPhyMNE>f rep ord dr sevilla</OrderingPhyMNE> <DictatingPhyMNE>f rep dict dr sevilla</DictatingPhyMNE> <CCListMNE>f rep ct mne</CCListMNE> <AdmittingPhyMNE>f pt admit dr sevilla</AdmittingPhyMNE> <AttendingPhyMNE>f pt attend dr sevilla</ AttendingPhyMNE> <ConsultingPhyMNE>f pt consult dr sevilla</ConsultingPhyMNE> <FamilyPhyMNE>f pt fam dr sevilla</FamilyPhyMNE> <OtherPhyMNE>f pt other dr sevilla</OtherPhyMNE> < PrimaryPhyMNE>f pt prim care dr sevilla</PrimaryPhyMNE> <ReferringPhyMNE>f pt referring dr sevilla</ReferringPhyMNE> Assessment & Plan Patient with acute sigmoid diverticulitis with micro perforation, clinically responding to IV antibiotics. Given the patient will likely require in the range of 2-3 weeks of antibiotics, would recommend changing patient to IV ertapenem 1 g daily which will allow much easier outpatient therapy. Will follow while in hospital.
[2018-01-24 15:15] VITALS: BP 140/85; PULSE 60; TEMP 36.9; O2SAT 96
[2018-01-24] MEDS ORDERED: IV FLUIDS: STOP ORDER ONE (15:59)
[2018-01-24] MEDS ORDERED: CUSTOM CENTRAL PN 1 BAG IV SCH (16:00)
[2018-01-24] MEDS ORDERED: DEXTROSE 10% 1,000 ML IV PRN (16:00)
[2018-01-24 22:41] VITALS: BP 151/92; PULSE 49; TEMP 36.4; O2SAT 99
[2018-01-25] MEDS: PIPERACILL/TAZOBAC IV 3.375 GM in DEXTROSE 5% 100ML 100 ML IV SCH (06:02)
[2018-01-25 06:34] LABS: ALBUMIN 3.1 gm/dl (3.4-5.0); CREATININE 1.21 mg/dl (0.60-1.40); PHOSPHORUS 3.2 mg/dl (2.5-4.9); POTASSIUM 3.8 mmol/L (3.5-5.1)
--- NOTE | 2018-01-25 06:53 | Surgery Progress Note ---
Surgery Progress Note Date of Service Jan 25, 2018. Subjective having some pain- now on tpn w/ picc Objective Vital Signs: Date Time Temp Pulse Resp B/P (MAP) Pulse Ox O2 Delivery O2 Flow Rate FiO2 01/25/18 00:18 Room Air 01/24/18 22:41 36.4 49 15 151/92 (111) 99 Room Air 01/24/18 16:00 Room Air 01/24/18 15:15 36.9 60 16 140/85 (103) 96 Room Air 01/24/18 08:37 Room Air 01/24/18 07:31 36.7 60 16 147/94 (111) 96 Room Air General Appearance: no apparent distress Respiratory/Chest: no respiratory distress Abdomen: normal bowel sounds, soft, + tenderness (lower abd) Laboratory Results: Results Past 24 Hours Test 01/24/18 10:14 01/25/18 05:34 01/25/18 05:51 Range/Units Sodium Level 139 138 136-145 mmol/L Potassium Level 3.8 3.8 3.5-5.1 mmol/L Chloride Level 106 103 98-107 mmol/L Carbon Dioxide Level 26 31 21-32 mmol/L Anion Gap 7.0 5.0 3-11 mmol/L Blood Urea Nitrogen 6 8 7-18 mg/dl Creatinine 1.44 1.21 0.60-1.40 mg/dl Est Creatinine Clear Calc Drug Dose 58.2 69.2 ml/min Estimated GFR () 72.9 90.0 Estimated GFR (Non- 62.9 77.6 BUN/Creatinine Ratio 3.8 6.7 10-20 Random Glucose 97 87 70-99 mg/dl Calcium Level 8.8 9.0 8.5-10.1 mg/dl Phosphorus Level 2.5 3.2 2.5-4.9 mg/dl Magnesium Level 1.8 2.0 1.8-2.4 mg/dl Triglycerides Level 102 180 0-150 mg/dl Albumin 3.1 3.4-5.0 gm/dl Bedside Glucose 86 70-99 mg/dl Assessment & Plan 01/25/18- pain not unexpected - cont clears only, Tpn IV atbx- will need to monitor in hospital at least 2-3 days may need longer - trying to avoid urgent operation/ stoma overall stable diverticulitis with microperforation has PICC, await ID consult for extended abx keep on clears, considering TPN repeat CT with similar findings, not yet developed into an abscess 01/24/18- will begin tpn for several days and plan for home antibiotics IV for total of 2-3 weeks- may need IR drainage- has [employer] insurance will discuss with [facility] - f/u Colorectal surgery Bridget murphy/ Brianda Maharaj prob here until diverticulitis with microperforation has PICC, await ID consult for extended abx keep on clears, considering TPN repeat CT with similar findings, not yet developed into an abscess 01/24/18- will begin tpn for several days and plan for home antibiotics IV for total of 2-3 weeks- may need IR drainage- has [employer] insurance will discuss with [facility] - f/u Colorectal surgery Bridget murphy/ Brianda Maharaj prob here until
[2018-01-25 07:55] VITALS: BP 146/84; PULSE 60; TEMP 36.3; O2SAT 97
[2018-01-25 09:29] VITALS: O2SAT 97
[2018-01-25] MEDS: MONTELUKAST SOD 10 MG TAB PO SCH (09:40)
[2018-01-25] MEDS: FLUTICASONE PROPIONATE NA SPR 16 GM BTL NAE SCH (09:41)
[2018-01-25 11:47] VITALS: BP 156/87; PULSE 60; TEMP 36.8; O2SAT 95
--- NOTE | 2018-01-25 12:59 | Pharmacy Progress Note ---
Parenteral Nutrition Consult Date of Service Jan 25, 2018. Scope Pharmacy was consulted on [DATE] to manage parenteral nutrition orders for this patient. Subjective The patient is currently on day2 of central parenteral nutrition for diverticulitis. Objective Height (Feet): 5 Height (Inches): 3.00 Weight (Kilograms): 60.300 Diet: Clear Liquid Vascular Access: PICC Intake & Output (Last 72 Hr): 01/24/18 01/25/18 01/26/18 08:00 08:00 08:00 Intake Total 3146 ml 3779 ml Output Total 2275 ml 2475 ml Balance 871 ml 1304 ml Laboratory Data (Last 24 Hr): Test 01/25/18 05:34 Albumin 3.1 gm/dl (3.4-5.0) Blood Urea Nitrogen 8 mg/dl (7-18) Calcium Level 9.0 mg/dl (8.5-10.1) Carbon Dioxide Level 31 mmol/L (21-32) Chloride Level 103 mmol/L (98-107) Creatinine 1.21 mg/dl (0.60-1.40) Magnesium Level 2.0 mg/dl (1.8-2.4) Phosphorus Level 3.2 mg/dl (2.5-4.9) Potassium Level 3.8 mmol/L (3.5-5.1) Random Glucose 87 mg/dl (70-99) Sodium Level 138 mmol/L (136-145) Triglycerides Level 180 mg/dl (0-150) Nutrition Assessment Please refer to the Notes section of the EMR for the most recent manager of hospital note. Assessment Tolerating TPN with 100 gm AA, 150 gm dextrose, 50 of lipids, will increase dextrose to goal. F: TPN @ 83 ml/hr E: Within normal limits, Cl trending down, CO2 trending up; will adjust N: Clear liquid diet, BSGs within normal limits Plan For day [2] of PN administration, the following will be ordered: Macronutrients Amino acids 100 grams/day Dextrose 200 grams/day Lipids 50 grams/day Micronutrients Sodium phosphate 21 MMol Sodium chloride 35 mEq Potassium chloride 20 mEq Magnesium sulfate 4.06 mEq Calcium gluconate 4.65 mEq Multivitamins 10 mL Trace Elements 1 mL Additional additives: Famotidine 40 mg Total volume 2000 mL to be infused over 24 hrs will provide 1580 kcal/day Labs, as indicated, will be ordered per protocol Pharmacy will continue to follow and adjust parenteral nutrition orders on a daily basis. Thank you for allowing us to participate in the care of this patient.
[2018-01-25] MEDS: ERTAPENEM IV 1 GM in SODIUM CHLOR 0.9% AD-VAN 50ML 50 ML IV SCH (13:14)
[2018-01-25 15:08] VITALS: BP 151/87; PULSE 62; TEMP 36.9; O2SAT 97
[2018-01-25] MEDS ORDERED: CUSTOM CENTRAL PN 1 BAG IV SCH (16:00)
[2018-01-25 23:45] VITALS: BP 158/78; PULSE 57; TEMP 36.6; O2SAT 97
[2018-01-26] MEDS ORDERED: HYDROCODONE/ACETAMIN 5/325MG TAB PO PRN ×2 (06:00)
--- NOTE | 2018-01-26 06:23 | Surgery Progress Note ---
Surgery Progress Note Date of Service Jan 26, 2018. Subjective afeb, vss less pain than yesterday on clear liquids, Tpn, IV atbx Objective Vital Signs: Date Time Temp Pulse Resp B/P (MAP) Pulse Ox O2 Delivery O2 Flow Rate FiO2 01/25/18 23:45 36.6 57 16 158/78 (104) 97 Room Air 01/25/18 23:35 Room Air 01/25/18 16:00 Room Air 01/25/18 15:08 36.9 62 17 151/87 (108) 97 Room Air 01/25/18 11:47 36.8 60 14 156/87 (110) 95 Room Air 01/25/18 09:29 97 Room Air 01/25/18 08:41 Room Air 01/25/18 07:55 36.3 60 16 146/84 (104) 97 Room Air General Appearance: no apparent distress Respiratory/Chest: no respiratory distress Abdomen: normal bowel sounds, soft Extremities: + pertinent finding (lower abd tenderness) Laboratory Results: Results Past 24 Hours Test 01/25/18 11:59 01/25/18 17:59 01/25/18 23:47 01/26/18 04:44 Range/Units Bedside Glucose 97 94 102 70-99 mg/dl Test 01/26/18 05:00 01/26/18 05:48 Range/Units Bedside Glucose 97 70-99 mg/dl Assessment & Plan 01/26/18- stable on clears, Tpn, IV atbx- cont same through weekend then plan for home on IV atbx w/ picc line- low fiber diet Dr Art covering over weekend 01/25/18- pain not unexpected - cont clears only, Tpn IV atbx- will need to monitor in hospital at least 2-3 days may need longer - trying to avoid urgent operation/ stoma overall stable diverticulitis with microperforation has PICC, await ID consult for extended abx keep on clears, considering TPN repeat CT with similar findings, not yet developed into an abscess 01/24/18- will begin tpn for several days and plan for home antibiotics IV for total of 2-3 weeks- may need IR drainage- has [employer] insurance will discuss with [facility] - f/u Colorectal surgery Bridget murphy/ Brianda Maharaj prob here until Tue/Tue01/25/18- pain not unexpected - cont clears only, Tpn IV atbx- will need to monitor in hospital at least 2-3 days may need longer - trying to avoid urgent operation/ stoma overall stable diverticulitis with microperforation has PICC, await ID consult for extended abx keep on clears, considering TPN repeat CT with similar findings, not yet developed into an abscess 01/24/18- will begin tpn for several days and plan for home antibiotics IV for total of 2-3 weeks- may need IR drainage- has [employer] insurance will discuss with [facility] - f/u Colorectal surgery Bridget murphy/ Brianda Maharaj prob here until Tue/Tue
[2018-01-26 07:08] LABS: HEMATOCRIT 43.4 % (42-52); MEAN CELL VOLUME 82.2 fL (80-100); MEAN CORPUSCULAR HEMOGLOBIN 30.3 pg (25-34); MEAN CORPUSCULAR HGB CONC 36.9 g/dl (32-36); MEAN PLATELET VOLUME 9.8 fL (7.4-10.4); PLATELET COUNT 297 K/uL (130-400); RED CELL DISTRIBUTION WIDTH CV 12.6 % (11.5-14.5); RED CELL DISTRIBUTION WIDTH SD 37.7 fL (36.4-46.3); WHITE BLOOD COUNT 7.75 K/uL (4.8-10.8)
[2018-01-26 07:25] VITALS: BP 138/86; PULSE 67; TEMP 36.9; O2SAT 96
[2018-01-26 07:39] LABS: CALCIUM 9.1 mg/dl (8.5-10.1); CREATININE 1.17 mg/dl (0.60-1.40); PHOSPHORUS 2.8 mg/dl (2.5-4.9); POTASSIUM 3.9 mmol/L (3.5-5.1)
[2018-01-26 08:30] VITALS: O2SAT 96
[2018-01-26] MEDS: MONTELUKAST SOD 10 MG TAB PO SCH (08:53)
[2018-01-26] MEDS: FLUTICASONE PROPIONATE NA SPR 16 GM BTL NAE SCH (08:54)
[2018-01-26] MEDS: ERTAPENEM IV 1 GM in SODIUM CHLOR 0.9% AD-VAN 50ML 50 ML IV SCH (10:34)
[2018-01-26 15:08] VITALS: BP 130/85; PULSE 67; TEMP 36.9; O2SAT 98
[2018-01-26] MEDS ORDERED: CUSTOM CENTRAL PN 1 BAG IV SCH (16:00)
--- NOTE | 2018-01-26 18:11 | Infectious Disease Progress Nt ---
Progress Note Date of Service Jan 26, 2018. Subjective Pt evaluation today including: conversation w/ patient, physical exam, chart review, lab review, review of studies, conversation w/ cyber security consultant, review of inpatient medication list Offers no new complaints today. Abdominal pain controlled. Remains afebrile All Other Systems: Reviewed and Negative Medications Current Inpatient Medications Medications (Trade) Dose Ordered Sig/Duke Route Start Time Stop Time Status Last Admin Dose Admin Prochlorperazine Edisylate 5 mg/ Syringe 5 ml @ 5 mls/min Q6H PRN IV 01/20/18 02:45 02/19/18 02:44 Lorazepam (Ativan Inj) 0.5 mg Q4H PRN IV 01/20/18 02:45 02/19/18 02:44 Fluticasone Propionate (Flonase Nasal [place]) 1 sprays DAILY DAVID 01/20/18 09:00 02/19/18 08:59 01/23/18 09:12 1 SPRAYS Lorazepam 0.5 mg/ Syringe 1 ml @ 1 mls/min Q4H PRN IV 01/20/18 05:00 02/19/18 04:59 Morphine Sulfate (MoRPHine SULFATE INJ) 2 mg Q3H PRN IV 01/20/18 05:15 02/03/18 02:44 Diphenhydramine HCl (Benadryl Inj) 25 mg Q6H PRN IV 01/20/18 05:15 02/19/18 05:14 Albuterol/ Ipratropium (Duoneb) 3 ml Q2H PRN INH 01/21/18 22:45 02/20/18 22:44 Ioversol (Optiray 320) 100 ml UD PRN IV 01/23/18 06:00 01/27/18 05:59 Montelukast Sodium (Singulair Tab) 10 mg DAILY PO 01/24/18 09:00 02/23/18 08:59 01/26/18 08:53 10 MG Heparin Sodium (Porcine) (Heparin 10 Unit/ ml 5 ml Flush) 5 ml PRN PRN FLUSH 01/23/18 11:45 02/22/18 11:44 01/26/18 11:11 5 ML Dextrose 1,000 ml @ 0 mls/hr Q0M PRN IV 01/24/18 16:00 02/23/18 15:59 Miscellaneous Information (Pharmacy Tpn/ Ppn Consult Active) 1 ea UD PRN N/A 01/24/18 07:45 02/23/18 07:44 Ertapenem 1 gm/ Sodium Chloride 50 ml @ 120 mls/hr Q24H IV 01/25/18 10:00 02/04/18 09:59 01/26/18 10:34 120 MLS/HR Acetaminophen/ Hydrocodone Bitart ([place] 5/325 Tab) 1 tab Q4 PRN PO 01/26/18 06:00 02/09/18 05:59 Acetaminophen/ Hydrocodone Bitart ([place] 5/325 Tab) 2 tab Q4 PRN PO 01/26/18 06:00 02/09/18 05:59 Nutrition (Parenteral) 0 ml @ 0 mls/hr TODAY@1600 IV 01/26/18 16:00 01/27/18 15:59 01/26/18 15:58 0 MLS/HR Objective Vital Signs Date Time Temp Pulse Resp B/P (MAP) Pulse Ox O2 Delivery O2 Flow Rate FiO2 01/26/18 15:08 36.9 67 18 130/85 (100) 98 01/26/18 08:30 96 Room Air 01/26/18 07:38 Room Air 01/26/18 07:25 36.9 67 18 138/86 (103) 96 Room Air 01/25/18 23:45 36.6 57 16 158/78 (104) 97 Room Air 01/25/18 23:35 Room Air Physical Exam General Appearance: WD/WN, no apparent distress Eyes: normal inspection, EOMI, sclerae normal ENT: normal ENT inspection, pharynx normal Neck: supple, no adenopathy, trachea midline Respiratory/Chest: chest non-tender, lungs clear, normal breath sounds, no respiratory distress Cardiovascular: regular rate, rhythm, no edema, no gallop, no murmur Abdomen: normal bowel sounds, non tender, soft, no organomegaly Extremities: non-tender, no calf tenderness, normal capillary refill Neurologic/Psychiatric: alert, normal mood/affect, oriented x 3 Skin: normal color, warm/dry, no rash Lymphatic: no adenopathy Laboratory Results Last 24 Hours Test 01/25/18 23:47 01/26/18 05:48 01/26/18 06:49 01/26/18 12:06 Bedside Glucose 102 mg/dl 97 mg/dl 93 mg/dl White Blood Count 7.75 K/uL Red Blood Count 5.28 M/uL Hemoglobin 16.0 g/dL Hematocrit 43.4 % Mean Corpuscular Volume 82.2 fL Mean Corpuscular Hemoglobin 30.3 pg Mean Corpuscular Hemoglobin Concent 36.9 g/dl RDW Standard Deviation 37.7 fL RDW Coefficient of Variation 12.6 % Platelet Count 297 K/uL Mean Platelet Volume 9.8 fL Sodium Level 138 mmol/L Potassium Level 3.9 mmol/L Chloride Level 103 mmol/L Carbon Dioxide Level 28 mmol/L Anion Gap 7.0 mmol/L Blood Urea Nitrogen 14 mg/dl Creatinine 1.17 mg/dl Est Creatinine Clear Calc Drug Dose 71.6 ml/min Estimated GFR () 93.7 Estimated GFR (Non- 80.9 BUN/Creatinine Ratio 12.3 Random Glucose 84 mg/dl Calcium Level 9.1 mg/dl Phosphorus Level 2.8 mg/dl Magnesium Level 2.0 mg/dl Assessment and Plan Patient with acute sigmoid diverticulitis with micro perforation, clinically responding to IV antibiotics. Given the patient will likely require in the range of 2-3 weeks of antibiotics, would continue IV ertapenem 1 g daily which will allow much easier outpatient therapy. Will follow while in hospital.
[2018-01-26 23:58] VITALS: BP 153/91; PULSE 61; TEMP 36.7; O2SAT 98
[2018-01-27 06:51] VITALS: BP 141/79; PULSE 61; TEMP 37; O2SAT 95
[2018-01-27] MEDS: MONTELUKAST SOD 10 MG TAB PO SCH (09:38)
[2018-01-27] MEDS: FLUTICASONE PROPIONATE NA SPR 16 GM BTL NAE SCH (09:39)
[2018-01-27] MEDS: ERTAPENEM IV 1 GM in SODIUM CHLOR 0.9% AD-VAN 50ML 50 ML IV SCH (09:54)
--- NOTE | 2018-01-27 10:00 | Surgery Progress Note ---
Surgery Progress Note Date of Service Jan 27, 2018. Subjective + feeling well, + bowel movement, + diet (clears) Objective Vital Signs: Date Time Temp Pulse Resp B/P (MAP) Pulse Ox O2 Delivery O2 Flow Rate FiO2 01/27/18 06:51 37.0 61 16 141/79 (99) 95 Room Air 01/27/18 00:30 Room Air 01/26/18 23:58 36.7 61 16 153/91 (111) 98 Room Air 01/26/18 15:55 Room Air 01/26/18 15:08 36.9 67 18 130/85 (100) 98 Abdomen: soft, + tenderness (mild LLQ/midline) Laboratory Results: Results Past 24 Hours Test 01/26/18 12:06 01/26/18 18:20 01/26/18 23:52 01/27/18 06:04 Range/Units Bedside Glucose 93 122 98 103 70-99 mg/dl Assessment & Plan diverticulitis with microperforation stable on clears, Tpn, IV atbx- cont same through weekend then plan for home on IV atbx w/ picc line- low fiber diet
[2018-01-27] MEDS ORDERED: CUSTOM CENTRAL PN 1 BAG IV SCH (16:00)
[2018-01-27 16:03] VITALS: BP 127/85; PULSE 62; TEMP 36.4; O2SAT 98
--- NOTE | 2018-01-27 19:12 | Progress Note ---
Internal Med Progress Note Date of Service: Jan 27, 2018. Provider Documentation: SUBJECTIVE: The patient was seen and examined in medical floor He was admitted with them colitis secondary to microabscess He has been on n.p.o. and IV antibiotics Clinically better today but will need to continue IV antibiotic and parenteral nutrition for a few days Denies any fever chills or rigors 01/27: Remains a stable Denies any symptoms whatsoever OBJECTIVE: Vital Signs-as noted below Exam: General-no apparent distress at rest Eyes-normal ENT-normal Neck-supple Lungs-clear to auscultate bilaterally Heart-regular, no murmur appreciated Abdomen-benign soft,, mildly tender left lower quadrant bowel sounds present, Extremities-no edema Neuro-alert awake and oriented 3, Lab data as noted below. ASSESSMENT & PLAN: Acute proximal sigmoid diverticulitis with microabscesses and microperforation Present with LLQ abdominal tenderness associated with diarrhea CT abdomen showed acute proximal sigmoid diverticulitis with several small localized air containing walled off perforations No evidence for a percutaneously drainable abscess or collection. Received Dapto and Primaxin in the ER Changed to intravenous Unasyn later on and now has been on IV Zosyn Continue IVF Surgery on board-appreciate input::plan for home antibiotics IV for total of 2-3 weeks- may need IR drainage- has [employer] insurance will discuss with [facility] - f/u Colorectal surgery Bridget murphy/ Brianda Maharaj prob here until Tue/Sat Has been n.p.o. and started on TPN from today which will be continued for a few days Clinically improves Repeat CT abdomen showed redemonstration of complicated acute sigmoid diverticulitis with multiple foci of extraluminal air within the adjacent sigmoid mesocolon compatible with perforation. ID input appreciated PICC line placed and IV antibiotics will be continued for 2-3 weeks as per ID We will continue current management Remains stable clinically without any symptoms Abnormal EKG? EKG on admission showed high degree AV block Repeat EKG showed bradycardia with normal sinus He was very athletic in school Asymptomatic .Asthma Asymptomatic Continue albuterol inhaler as needed GERD Continue IV Pepcid for now DVT Px on SCDs Code Status FULL CODE Disposition Will need 4-5 more days before discharge Likely to go home on IV ertapenem on Tuesday Vital Signs: Date Time Temp Pulse Resp B/P (MAP) Pulse Ox O2 Delivery O2 Flow Rate FiO2 7/28/18 15:14 36.6 61 18 131/81 (98) 98 Room Air 01/28/18 06:44 36.6 56 16 137/85 (102) 97 Room Air 01/28/18 00:00 Room Air 01/27/18 23:22 36.5 57 16 138/81 (100) 98 Room Air 01/27/18 20:00 Room Air Lab Results: Results Past 24 Hours Test 01/28/18 06:09 Range/Units Sodium Level 138 136-145 mmol/L Potassium Level 4.0 3.5-5.1 mmol/L Chloride Level 106 98-107 mmol/L Carbon Dioxide Level 23 21-32 mmol/L Anion Gap 9.0 3-11 mmol/L Blood Urea Nitrogen 20 7-18 mg/dl Creatinine 0.98 0.60-1.40 mg/dl Est Creatinine Clear Calc Drug Dose 85.5 ml/min Estimated GFR () 116.1 Estimated GFR (Non- 100.2 BUN/Creatinine Ratio 20.4 10-20 Random Glucose 89 70-99 mg/dl Calcium Level 8.6 8.5-10.1 mg/dl Phosphorus Level 3.0 2.5-4.9 mg/dl Magnesium Level 1.9 1.8-2.4 mg/dl Triglycerides Level 195 0-150 mg/dl
[2018-01-27 23:22] VITALS: BP 138/81; PULSE 57; TEMP 36.5; O2SAT 98
[2018-01-28 06:44] VITALS: BP 137/85; PULSE 56; TEMP 36.6; O2SAT 97
[2018-01-28 07:05] LABS: CALCIUM 8.6 mg/dl (8.5-10.1); CREATININE 0.98 mg/dl (0.60-1.40)
[2018-01-28] MEDS: MONTELUKAST SOD 10 MG TAB PO SCH (09:01)
[2018-01-28] MEDS: FLUTICASONE PROPIONATE NA SPR 16 GM BTL NAE SCH (09:01)
--- NOTE | 2018-01-28 09:32 | Surgery Progress Note ---
Surgery Progress Note Date of Service Jan 28, 2018. Subjective + bowel movement, + diet (tolerating clears), No nausea, No vomiting Pain has almost resolved Objective Vital Signs: Date Time Temp Pulse Resp B/P (MAP) Pulse Ox O2 Delivery O2 Flow Rate FiO2 01/28/18 06:44 36.6 56 16 137/85 (102) 97 Room Air 01/28/18 00:00 Room Air 01/27/18 23:22 36.5 57 16 138/81 (100) 98 Room Air 01/27/18 20:00 Room Air 01/27/18 16:03 36.4 62 16 127/85 (99) 98 Room Air Abdomen: non distended, soft, + tenderness (mild to moderate palpation in the suprapubic area) Laboratory Results: Results Past 24 Hours Test 01/27/18 12:12 01/27/18 18:05 01/28/18 06:09 Range/Units Bedside Glucose 92 105 70-99 mg/dl Sodium Level 138 136-145 mmol/L Potassium Level 4.0 3.5-5.1 mmol/L Chloride Level 106 98-107 mmol/L Carbon Dioxide Level 23 21-32 mmol/L Anion Gap 9.0 3-11 mmol/L Blood Urea Nitrogen 20 7-18 mg/dl Creatinine 0.98 0.60-1.40 mg/dl Est Creatinine Clear Calc Drug Dose 85.5 ml/min Estimated GFR () 116.1 Estimated GFR (Non- 100.2 BUN/Creatinine Ratio 20.4 10-20 Random Glucose 89 70-99 mg/dl Calcium Level 8.6 8.5-10.1 mg/dl Phosphorus Level 3.0 2.5-4.9 mg/dl Magnesium Level 1.9 1.8-2.4 mg/dl Triglycerides Level 195 0-150 mg/dl Assessment & Plan Diverticulitis with microperforation and possible fistula Improving with conservative measures Continue IV antibiotics Plan for D/C on home IV antibiotics
[2018-01-28] MEDS: ERTAPENEM IV 1 GM in SODIUM CHLOR 0.9% AD-VAN 50ML 50 ML IV SCH (10:01)
[2018-01-28 15:14] VITALS: BP 131/81; PULSE 61; TEMP 36.6; O2SAT 98
[2018-01-28] MEDS ORDERED: CUSTOM CENTRAL PN 1 BAG IV SCH (16:00)
--- NOTE | 2018-01-28 18:03 | Progress Note ---
Internal Med Progress Note Date of Service: Jan 28, 2018. Provider Documentation: SUBJECTIVE: The patient was seen and examined in medical floor He was admitted with them colitis secondary to microabscess He has been on n.p.o. and IV antibiotics Clinically better today but will need to continue IV antibiotic and parenteral nutrition for a few days Denies any fever chills or rigors 01/27: Remains a stable Denies any symptoms whatsoever 01/28 Denies any complaints Has been tolerating clear liquids and TPN Clinically a lot better We will start full liquid diet and advance to mechanical soft tomorrow Likely to be discharged on Tuesday with IV antibiotic OBJECTIVE: Vital Signs-as noted below Exam: General-no apparent distress at rest Eyes-normal ENT-normal Neck-supple Lungs-clear to auscultate bilaterally Heart-regular, no murmur appreciated Abdomen-benign soft,non-tender left lower quadrant bowel sounds present, Extremities-no edema Neuro-alert awake and oriented 3, Lab data as noted below. ASSESSMENT & PLAN: Acute proximal sigmoid diverticulitis with microabscesses and microperforation Present with LLQ abdominal tenderness associated with diarrhea CT abdomen showed acute proximal sigmoid diverticulitis with several small localized air containing walled off perforations No evidence for a percutaneously drainable abscess or collection. Received Dapto and Primaxin in the ER Changed to intravenous Unasyn later on and now has been on IV Zosyn Continue IVF Surgery on board-appreciate input::plan for home antibiotics IV for total of 2-3 weeks- may need IR drainage- has [employer] insurance will discuss with [facility] - f/u Colorectal surgery Bridget murphy/ Brianda Maharaj prob here until Tuesday the 31 of January. Has been n.p.o. and started on TPN from today which will be continued for a few days Clinically improves Repeat CT abdomen showed re-demonstration of complicated acute sigmoid diverticulitis with multiple foci of extraluminal air within the adjacent sigmoid mesocolon compatible with perforation. ID input appreciated PICC line placed and IV antibiotics will be continued for 2-3 weeks as per ID Denies any symptoms and has been tolerating liquid diet and TPN Diet changes to full liquid from today and will advance to mechanical soft from tomorrow Likely to discharge on Tuesday with IV ertapenem-prescriptions given to social service Will need to discuss with Dr Nair on Tuesday for a follow up appointment before discharge. Abnormal EKG? EKG on admission showed high degree AV block Repeat EKG showed bradycardia with normal sinus He was very athletic in school Asymptomatic No further issue Asthma Asymptomatic Continue albuterol inhaler as needed GERD Continue IV Pepcid Changed to oral ranitidine DVT Px on SCDs Code Status FULL CODE Disposition Likely to be discharged on Tuesday Vital Signs: Date Time Temp Pulse Resp B/P (MAP) Pulse Ox O2 Delivery O2 Flow Rate FiO2 01/28/18 15:14 36.6 61 18 131/81 (98) 98 Room Air 01/28/18 06:44 36.6 56 16 137/85 (102) 97 Room Air 01/28/18 00:00 Room Air 01/27/18 23:22 36.5 57 16 138/81 (100) 98 Room Air 01/27/18 20:00 Room Air Lab Results: Results Past 24 Hours Test 01/28/18 06:09 Range/Units Sodium Level 138 136-145 mmol/L Potassium Level 4.0 3.5-5.1 mmol/L Chloride Level 106 98-107 mmol/L Carbon Dioxide Level 23 21-32 mmol/L Anion Gap 9.0 3-11 mmol/L Blood Urea Nitrogen 20 7-18 mg/dl Creatinine 0.98 0.60-1.40 mg/dl Est Creatinine Clear Calc Drug Dose 85.5 ml/min Estimated GFR () 116.1 Estimated GFR (Non- 100.2 BUN/Creatinine Ratio 20.4 10-20 Random Glucose 89 70-99 mg/dl Calcium Level 8.6 8.5-10.1 mg/dl Phosphorus Level 3.0 2.5-4.9 mg/dl Magnesium Level 1.9 1.8-2.4 mg/dl Triglycerides Level 195 0-150 mg/dl
--- NOTE | 2018-01-28 18:08 | Progress Note ---
Internal Med Progress Note Date of Service: Jan 25, 2018. Provider Documentation: tHIS IS A BILL FOR 01/25/18 SUBJECTIVE: The patient was seen and examined in medical floor He was admitted with them colitis secondary to microabscess He has been on n.p.o. and IV antibiotics Clinically better today but will need to continue IV antibiotic and parenteral nutrition for a few days Denies any fever chills or rigors 01/25; has had some diarrhea but no other complaints Remains otherwise stable OBJECTIVE: Vital Signs-as noted below Exam: General-no apparent distress at rest Eyes-normal ENT-normal Neck-supple Lungs-clear to auscultate bilaterally Heart-regular, no murmur appreciated Abdomen-benign soft,, mildly tender left lower quadrant bowel sounds present, Extremities-no edema Neuro-alert awake and oriented 3, Lab data as noted below. ASSESSMENT & PLAN: Acute proximal sigmoid diverticulitis with microabscesses and microperforation Present with LLQ abdominal tenderness associated with diarrhea CT abdomen showed acute proximal sigmoid diverticulitis with several small localized air containing walled off perforations No evidence for a percutaneously drainable abscess or collection. Received Dapto and Primaxin in the ER Changed to intravenous Unasyn later on and now has been on IV Zosyn Continue IVF Surgery on board-appreciate input::plan for home antibiotics IV for total of 2-3 weeks- may need IR drainage- has [employer] insurance will discuss with [facility] - f/u Colorectal surgery Bridget murphy/ Brianda Maharaj prob here until Tue/Sat Has been n.p.o. and started on TPN from today which will be continued for a few days Clinically improves Repeat CT abdomen showed redemonstration of complicated acute sigmoid diverticulitis with multiple foci of extraluminal air within the adjacent sigmoid mesocolon compatible with perforation. ID input appreciated PICC line placed and IV antibiotics will be continued for 2-3 weeks as per ID Clinically stable Continue current treatment Abnormal EKG? EKG on admission showed high degree AV block Repeat EKG showed bradycardia with normal sinus He was very athletic in school Asymptomatic Asthma Asymptomatic Continue albuterol inhaler as needed GERD Continue IV Pepcid DVT Px on SCDs Code Status FULL CODE Disposition Will need 4-5 more days before discharge Vital Signs: Date Time Temp Pulse Resp B/P (MAP) Pulse Ox O2 Delivery O2 Flow Rate FiO2 01/28/18 15:14 36.6 61 18 131/81 (98) 98 Room Air 01/28/18 06:44 36.6 56 16 137/85 (102) 97 Room Air 01/28/18 00:00 Room Air 01/27/18 23:22 36.5 57 16 138/81 (100) 98 Room Air 01/27/18 20:00 Room Air Lab Results: Results Past 24 Hours Test 01/28/18 06:09 Range/Units Sodium Level 138 136-145 mmol/L Potassium Level 4.0 3.5-5.1 mmol/L Chloride Level 106 98-107 mmol/L Carbon Dioxide Level 23 21-32 mmol/L Anion Gap 9.0 3-11 mmol/L Blood Urea Nitrogen 20 7-18 mg/dl Creatinine 0.98 0.60-1.40 mg/dl Est Creatinine Clear Calc Drug Dose 85.5 ml/min Estimated GFR () 116.1 Estimated GFR (Non- 100.2 BUN/Creatinine Ratio 20.4 10-20 Random Glucose 89 70-99 mg/dl Calcium Level 8.6 8.5-10.1 mg/dl Phosphorus Level 3.0 2.5-4.9 mg/dl Magnesium Level 1.9 1.8-2.4 mg/dl Triglycerides Level 195 0-150 mg/dl
--- NOTE | 2018-01-28 18:10 | Progress Note ---
Internal Med Progress Note Date of Service: Jan 26, 2018. Provider Documentation: tHIS IS A BILL FOR 01/26/18 SUBJECTIVE: The patient was seen and examined in medical floor He was admitted with them colitis secondary to microabscess He has been on n.p.o. and IV antibiotics Clinically better today but will need to continue IV antibiotic and parenteral nutrition for a few days Denies any fever chills or rigors 01/25; has had some diarrhea but no other complaints Remains otherwise stable 01/26: No complaints No diarrhea and abdominal pain OBJECTIVE: Vital Signs-as noted below Exam: General-no apparent distress at rest Eyes-normal ENT-normal Neck-supple Lungs-clear to auscultate bilaterally Heart-regular, no murmur appreciated Abdomen-benign soft,, mildly tender left lower quadrant bowel sounds present, Extremities-no edema Neuro-alert awake and oriented 3, Lab data as noted below. ASSESSMENT & PLAN: Acute proximal sigmoid diverticulitis with microabscesses and microperforation Present with LLQ abdominal tenderness associated with diarrhea CT abdomen showed acute proximal sigmoid diverticulitis with several small localized air containing walled off perforations No evidence for a percutaneously drainable abscess or collection. Received Dapto and Primaxin in the ER Changed to intravenous Unasyn later on and now has been on IV Zosyn Continue IVF Surgery on board-appreciate input::plan for home antibiotics IV for total of 2-3 weeks- may need IR drainage- has [employer] insurance will discuss with [facility] - f/u Colorectal surgery Bridget murphy/ Brianda Maharaj prob here until Tue/Sat Has been n.p.o. and started on TPN from today which will be continued for a few days Clinically improves Repeat CT abdomen showed redemonstration of complicated acute sigmoid diverticulitis with multiple foci of extraluminal air within the adjacent sigmoid mesocolon compatible with perforation. ID input appreciated PICC line placed and IV antibiotics will be continued for 2-3 weeks as per ID Clinically stable Continue current treatment Tolerating clears orally Abnormal EKG? EKG on admission showed high degree AV block Repeat EKG showed bradycardia with normal sinus He was very athletic in school Asymptomatic Asthma Asymptomatic Continue albuterol inhaler as needed GERD Continue IV Pepcid DVT Px on SCDs Code Status FULL CODE Disposition Will need A FEW more days before discharge Vital Signs: Date Time Temp Pulse Resp B/P (MAP) Pulse Ox O2 Delivery O2 Flow Rate FiO2 01/28/18 15:14 36.6 61 18 131/81 (98) 98 Room Air 01/28/18 06:44 36.6 56 16 137/85 (102) 97 Room Air 01/28/18 00:00 Room Air 01/27/18 23:22 36.5 57 16 138/81 (100) 98 Room Air 01/27/18 20:00 Room Air Lab Results: Results Past 24 Hours Test 01/28/18 06:09 Range/Units Sodium Level 138 136-145 mmol/L Potassium Level 4.0 3.5-5.1 mmol/L Chloride Level 106 98-107 mmol/L Carbon Dioxide Level 23 21-32 mmol/L Anion Gap 9.0 3-11 mmol/L Blood Urea Nitrogen 20 7-18 mg/dl Creatinine 0.98 0.60-1.40 mg/dl Est Creatinine Clear Calc Drug Dose 85.5 ml/min Estimated GFR () 116.1 Estimated GFR (Non- 100.2 BUN/Creatinine Ratio 20.4 10-20 Random Glucose 89 70-99 mg/dl Calcium Level 8.6 8.5-10.1 mg/dl Phosphorus Level 3.0 2.5-4.9 mg/dl Magnesium Level 1.9 1.8-2.4 mg/dl Triglycerides Level 195 0-150 mg/dl
[2018-01-28] MEDS: RANITIDINE HCL 150 MG TAB PO SCH (19:39)
[2018-01-28 22:47] VITALS: BP 139/86; PULSE 63; TEMP 36.3; O2SAT 97
[2018-01-29 06:12] LABS: CALCIUM 8.4 mg/dl (8.5-10.1); CREATININE 0.93 mg/dl (0.60-1.40); PHOSPHORUS 3.1 mg/dl (2.5-4.9); POTASSIUM 4.1 mmol/L (3.5-5.1)
[2018-01-29 06:59] VITALS: BP 146/82; PULSE 54; TEMP 36.5; O2SAT 96
[2018-01-29] MEDS: FLUTICASONE PROPIONATE NA SPR 16 GM BTL NAE SCH (09:00)
[2018-01-29] MEDS: RANITIDINE HCL 150 MG TAB PO SCH ×2 (09:27→20:17)
[2018-01-29] MEDS: ERTAPENEM IV 1 GM in SODIUM CHLOR 0.9% AD-VAN 50ML 50 ML IV SCH (09:30)
[2018-01-29] MEDS: MONTELUKAST SOD 10 MG TAB PO SCH (10:10)
--- NOTE | 2018-01-29 10:12 | Surgery Progress Note ---
Surgery Progress Note Date of Service Jan 29, 2018. Subjective + feeling well, + diet (tolerated full liquid diet), No nausea, No vomiting Almost no pain Objective Vital Signs: Date Time Temp Pulse Resp B/P (MAP) Pulse Ox O2 Delivery O2 Flow Rate FiO2 01/29/18 08:00 Room Air 01/29/18 06:59 36.5 54 18 146/82 (103) 96 Room Air 01/28/18 23:42 Room Air 01/28/18 22:47 36.3 63 15 139/86 (103) 97 Room Air 01/28/18 16:10 Room Air 01/28/18 15:14 36.6 61 18 131/81 (98) 98 Room Air Abdomen: non tender, non distended, soft Laboratory Results: Results Past 24 Hours Test 01/29/18 05:31 Range/Units Sodium Level 138 136-145 mmol/L Potassium Level 4.1 3.5-5.1 mmol/L Chloride Level 107 98-107 mmol/L Carbon Dioxide Level 26 21-32 mmol/L Anion Gap 5.0 3-11 mmol/L Blood Urea Nitrogen 20 7-18 mg/dl Creatinine 0.93 0.60-1.40 mg/dl Est Creatinine Clear Calc Drug Dose 90.1 ml/min Estimated GFR () 123.7 Estimated GFR (Non- 106.7 BUN/Creatinine Ratio 21.4 10-20 Random Glucose 93 70-99 mg/dl Calcium Level 8.4 8.5-10.1 mg/dl Phosphorus Level 3.1 2.5-4.9 mg/dl Magnesium Level 1.9 1.8-2.4 mg/dl Assessment & Plan Diverticulitis with microperforation and possible fistula Improving with conservative measures Continue IV antibiotics Plan for D/C on home IV antibiotics
--- NOTE | 2018-01-29 13:52 | Progress Note ---
Medicine Progress Note Date & Time of Visit: Jan 29, 2018 at 13:40 . Subjective CC: Follow-up visit for diverticulitis. HPI: Doing well. No fever. Tolerating full liquid diet. No N/V. Small loose stools. Abdominal pain essentially resolved. ROS: General- no fever, no chills Resp- no cough; no shortness of breath Cardiac- no chest pain, no edema GI- as noted above in HPI - . Objective Last 8 Hrs Date Time Temp Pulse Resp B/P (MAP) Pulse Ox O2 Delivery O2 Flow Rate FiO2 01/29/18 08:00 Room Air 01/29/18 06:59 36.5 54 18 146/82 (103) 96 Room Air Physical Exam: General- no distress Lungs- clear to auscultation; no respiratory distress Cardiovascular- RRR; no murmur; no gallop; no JVD; no pretibial edema Abdomen- + bowel sounds, nondistended, soft, nontender Extremities- no cyanosis; no calf tenderness Neuro- alert, oriented Skin- warm & dry . Laboratory Results: Last 24 Hours Test 01/29/18 05:31 Sodium Level 138 mmol/L Potassium Level 4.1 mmol/L Chloride Level 107 mmol/L Carbon Dioxide Level 26 mmol/L Anion Gap 5.0 mmol/L Blood Urea Nitrogen 20 mg/dl Creatinine 0.93 mg/dl Est Creatinine Clear Calc Drug Dose 90.1 ml/min Estimated GFR () 123.7 Estimated GFR (Non- 106.7 BUN/Creatinine Ratio 21.4 Random Glucose 93 mg/dl Calcium Level 8.4 mg/dl Phosphorus Level 3.1 mg/dl Magnesium Level 1.9 mg/dl Assessment & Plan COMPLICATED DIVERTICULITIS Presented to ED with abdominal pain. CT 01/19 demonstrated proximal sigmoid diverticulitis with small localized air pockets indicating walled off microperforations, no drainable abscess. Received IV daptomycin and imipenem / cilastatin in ED, then ordered ampicillin / sulbactam upon admission. Placed on bowel rest. ID and General Surgery consulted. F/U CT 01/23 demonstrated persistent sigmoid diverticulitis, multiple foci of extraluminal air indicating perforation, marked pericolonic inflammation, suggested sinus tract or fistula extending toward the dome of the bladder. Receiving TPN. Diet advanced. Tolerating full liquids. 2-3 weeks of IV antibiotics recommended. Antibiotic therapy changed to ertapenem per ID for easier outpatient treatment. Advance diet to low fiber. Outpatient consultation with Colorectal Surgery anticipated. VTE PROPHYLAXIS SCD's. Ambulate. DISPOSITION Expected discharge to home. [facility] follow[facility] with [facility]. Outpatient consultation with Colorectal Surgery to be arranged. . Current Inpatient Medications: Current Inpatient Medications Medications (Trade) Dose Ordered Sig/Duke Route Start Time Stop Time Status Last Admin Dose Admin Prochlorperazine Edisylate 5 mg/ Syringe 5 ml @ 5 mls/min Q6H PRN IV 01/20/18 02:45 02/19/18 02:44 Lorazepam (Ativan Inj) 0.5 mg Q4H PRN IV 01/20/18 02:45 02/19/18 02:44 Fluticasone Propionate (Flonase Nasal [place]) 1 sprays DAILY DAVID 01/20/18 09:00 02/19/18 08:59 01/28/18 09:01 1 SPRAYS Lorazepam 0.5 mg/ Syringe 1 ml @ 1 mls/min Q4H PRN IV 01/20/18 05:00 02/19/18 04:59 Morphine Sulfate (MoRPHine SULFATE INJ) 2 mg Q3H PRN IV 01/20/18 05:15 02/03/18 02:44 Diphenhydramine HCl (Benadryl Inj) 25 mg Q6H PRN IV 01/20/18 05:15 02/19/18 05:14 Albuterol/ Ipratropium (Duoneb) 3 ml Q2H PRN INH 01/21/18 22:45 02/20/18 22:44 Montelukast Sodium (Singulair Tab) 10 mg DAILY PO 01/24/18 09:00 02/23/18 08:59 01/29/18 10:10 10 MG Heparin Sodium (Porcine) (Heparin 10 Unit/ ml 5 ml Flush) 5 ml PRN PRN FLUSH 01/23/18 11:45 02/22/18 11:44 01/29/18 10:11 5 ML Dextrose 1,000 ml @ 0 mls/hr Q0M PRN IV 01/24/18 16:00 02/23/18 15:59 Miscellaneous Information (Pharmacy Tpn/ Ppn Consult Active) 1 ea UD PRN N/A 01/24/18 07:45 02/23/18 07:44 Ertapenem 1 gm/ Sodium Chloride 50 ml @ 120 mls/hr Q24H IV 01/25/18 10:00 02/04/18 09:59 01/29/18 09:30 120 MLS/HR Acetaminophen/ Hydrocodone Bitart ([place] 5/325 Tab) 1 tab Q4 PRN PO 01/26/18 06:00 02/09/18 05:59 Acetaminophen/ Hydrocodone Bitart (May 5/325 Tab) 2 tab Q4 PRN PO 01/26/18 06:00 02/09/18 05:59 Nutrition (Parenteral) 0 ml @ 0 mls/hr TODAY@1600 IV 01/28/18 16:00 01/29/18 15:59 01/28/18 16:41 0 MLS/HR Ranitidine HCl (zANTac TAB) 150 mg BID PO 01/28/18 21:00 02/27/18 20:59 01/29/18 09:27 150 MG
[2018-01-29 15:43] VITALS: BP 132/87; PULSE 87; TEMP 36.9; O2SAT 95
[2018-01-29] MEDS ORDERED: CUSTOM CENTRAL PN 1 BAG IV SCH (16:00)
[2018-01-29 23:15] VITALS: BP 142/89; PULSE 62; TEMP 36.5; O2SAT 97
[2018-01-30 05:53] LABS: HEMATOCRIT 42.7 % (42-52); HEMOGLOBIN 15.5 g/dL (14.0-18.0); MEAN CELL VOLUME 82.8 fL (80-100); MEAN CORPUSCULAR HGB CONC 36.3 g/dl (32-36); MEAN PLATELET VOLUME 10.7 fL (7.4-10.4); PLATELET COUNT 276 K/uL (130-400); RED CELL DISTRIBUTION WIDTH CV 12.9 % (11.5-14.5); RED CELL DISTRIBUTION WIDTH SD 38.7 fL (36.4-46.3); WHITE BLOOD COUNT 8.66 K/uL (4.8-10.8)
--- NOTE | 2018-01-30 06:22 | Surgery Progress Note ---
Surgery Progress Note Date of Service Jan 30, 2018. Subjective afeb, vss some lower abd discomfort tolerating full liquids Objective Vital Signs: Date Time Temp Pulse Resp B/P (MAP) Pulse Ox O2 Delivery O2 Flow Rate FiO2 01/29/18 23:15 Room Air 01/29/18 23:15 36.5 62 16 142/89 (106) 97 Room Air 01/29/18 20:00 Room Air 01/29/18 16:00 Room Air 01/29/18 15:43 36.9 87 18 132/87 (102) 95 Room Air 01/29/18 08:00 Room Air 01/29/18 06:59 36.5 54 18 146/82 (103) 96 Room Air General Appearance: no apparent distress Respiratory/Chest: no respiratory distress Abdomen: soft, + pertinent finding (mild lower abd discomfort) Laboratory Results: Results Past 24 Hours Test 01/30/18 05:33 Range/Units White Blood Count 8.66 4.8-10.8 K/uL Red Blood Count 5.16 4.7-6.1 M/uL Hemoglobin 15.5 14.0-18.0 g/dL Hematocrit 42.7 42-52 % Mean Corpuscular Volume 82.8 80-100 fL Mean Corpuscular Hemoglobin 30.0 25-34 pg Mean Corpuscular Hemoglobin Concent 36.3 32-36 g/dl RDW Standard Deviation 38.7 36.4-46.3 fL RDW Coefficient of Variation 12.9 11.5-14.5 % Platelet Count 276 130-400 K/uL Mean Platelet Volume 10.7 7.4-10.4 fL Erythrocyte Sedimentation Rate 11 0-14 mm/hr Assessment & Plan 01/30/18- plan to d/c home on IV atbx - prob total 3 weeks will discuss CRS f/u with medical team- script for [place] 01/26/18- stable on clears, Tpn, IV atbx- cont same through weekend then plan for home on IV atbx w/ picc line- low fiber diet Dr Art covering over weekend 01/25/18- pain not unexpected - cont clears only, Tpn IV atbx- will need to monitor in hospital at least 2-3 days may need longer - trying to avoid urgent operation/ stoma overall stable diverticulitis with microperforation has PICC, await ID consult for extended abx keep on clears, considering TPN repeat CT with similar findings, not yet developed into an abscess 01/24/18- will begin tpn for several days and plan for home antibiotics IV for total of 2-3 weeks- may need IR drainage- has [employer] insurance will discuss with [facility] - f/u Colorectal surgery Bridget murphy/ Brianda Maharaj prob here until Tue/Tue01/26/18- stable on clears, Tpn, IV atbx- cont same through weekend then plan for home on IV atbx w/ picc line- low fiber diet Dr Art covering over weekend 01/25/18- pain not unexpected - cont clears only, Tpn IV atbx- will need to monitor in hospital at least 2-3 days may need longer - trying to avoid urgent operation/ stoma overall stable diverticulitis with microperforation has PICC, await ID consult for extended abx keep on clears, considering TPN repeat CT with similar findings, not yet developed into an abscess 01/24/18- will begin tpn for several days and plan for home antibiotics IV for total of 2-3 weeks- may need IR drainage- has [employer] insurance will discuss with [facility] - f/u Colorectal surgery Bridget murphy/ Brianda Maharaj prob here until Tue/Tue
[2018-01-30] MEDS ORDERED: HYDR-5688 PO (06:23)
[2018-01-30 07:38] VITALS: BP 136/91; PULSE 84; TEMP 36.5; O2SAT 96
[2018-01-30] MEDS: FLUTICASONE PROPIONATE NA SPR 16 GM BTL NAE SCH (08:32)
[2018-01-30] MEDS: RANITIDINE HCL 150 MG TAB PO SCH (08:32)
[2018-01-30] MEDS: MONTELUKAST SOD 10 MG TAB PO SCH (08:32)
--- NOTE | 2018-01-30 08:33 | Discharge Instructions ---
Discharge Instructions Date of Service Jan 30, 2018. Admission Reason for Admission: Colitis Discharge Discharge Diagnosis / Problem: diverticulitis Discharge Goals Goal(s): Decrease discomfort, Improve function, Improve disease control Activity Recommendations Activity Limitations: as noted below Lifting Limitations: no more than 25 pounds Exercise/Sports Limitations: until after follow-up appointment May Resume Sexual Activity: when tolerated Shower/Bathe: no limitations Driving or Machine Use: resume 1 day after discharge . Instructions / Follow-Up Instructions / Follow-Up follow up with [facility] and also may call Dr Nair's office [phone]- for followup Current Hospital Diet Patient's current hospital diet: Regular Diet, Low Fiber Diet Discharge Diet Recommended Diet: Low Fiber Diet Pending Studies Studies pending at discharge: no Laboratory Results Lipid Panel Test 01/28/18 06:09 Range/Units Triglycerides Level 195 H 0-150 mg/dl Medical Emergencies . Who to Call and When: Medical Emergencies: If at any time you feel your situation is an emergency, please call 911 immediately. . Non-Emergent Contact Non-Emergency issues call your: Primary Care Provider, Surgeon . "Provider Documentation" section prepared by Dion Nair. .
[2018-01-30] MEDS: ERTAPENEM IV 1 GM in SODIUM CHLOR 0.9% AD-VAN 50ML 50 ML IV SCH (10:21)
[2018-01-30 15:08] VITALS: BP 115/75; PULSE 67; TEMP 36.6; O2SAT 98
[2018-01-30 15:17] VITALS: BP 115/75; PULSE 67; TEMP 36.6; O2SAT 98
--- NOTE | 2018-01-30 15:57 | Progress Note ---
Medicine Progress Note Date & Time of Visit: Jan 30, 2018 at 15:56 . Subjective Doing well. No fever. Tolerating diet. No nausea, vomiting, abdominal pain. Ambulating. Anxious to go home. . Objective Last 8 Hrs Date Time Temp Pulse Resp B/P (MAP) Pulse Ox O2 Delivery O2 Flow Rate FiO2 01/30/18 15:17 36.6 67 19 98 Room Air 01/30/18 15:08 36.6 67 19 115/75 (88) 98 Room Air Physical Exam: General- no distress Lungs- clear to auscultation; no respiratory distress Cardiovascular- RRR; no murmur; no gallop; no JVD; no pretibial edema Abdomen- + bowel sounds, nondistended, soft, nontender Extremities- no cyanosis; no calf tenderness . Laboratory Results: Last 24 Hours Test 01/30/18 05:33 White Blood Count 8.66 K/uL Red Blood Count 5.16 M/uL Hemoglobin 15.5 g/dL Hematocrit 42.7 % Mean Corpuscular Volume 82.8 fL Mean Corpuscular Hemoglobin 30.0 pg Mean Corpuscular Hemoglobin Concent 36.3 g/dl RDW Standard Deviation 38.7 fL RDW Coefficient of Variation 12.9 % Platelet Count 276 K/uL Mean Platelet Volume 10.7 fL Erythrocyte Sedimentation Rate 11 mm/hr C-Reactive Protein 1.12 mg/dl Assessment & Plan COMPLICATED DIVERTICULITIS Presented to ED with abdominal pain. CT 01/19 demonstrated proximal sigmoid diverticulitis with small localized air pockets indicating walled off microperforations, no drainable abscess. Received IV daptomycin and imipenem / cilastatin in ED, then ordered ampicillin / sulbactam upon admission. Placed on bowel rest. ID and General Surgery consulted. F/U CT 01/23 demonstrated persistent sigmoid diverticulitis, multiple foci of extraluminal air indicating perforation, marked pericolonic inflammation, suggested sinus tract or fistula extending toward the dome of the bladder. Received TPN. Diet advanced and TPN discontinued. Antibiotic therapy changed to ertapenem per ID for outpatient therapy; total of 3 weeks of IV antibiotics recommended. Outpatient consultation with Colorectal Surgery anticipated. VTE PROPHYLAXIS SCD's. Ambulate. DISPOSITION Discharge to home. Primary Care follow-up with [facility]. Outpatient consultation with Colorectal Surgery to be arranged. . Consultants: General Surgery ID . Current Inpatient Medications: Current Inpatient Medications Medications (Trade) Dose Ordered Sig/Duke Route Start Time Stop Time Status Last Admin Dose Admin Prochlorperazine Edisylate 5 mg/ Syringe 5 ml @ 5 mls/min Q6H PRN IV 01/20/18 02:45 02/19/18 02:44 Lorazepam (Ativan Inj) 0.5 mg Q4H PRN IV 01/20/18 02:45 02/19/18 02:44 Fluticasone Propionate (Flonase Nasal [place]) 1 sprays DAILY DAVID 01/20/18 09:00 02/19/18 08:59 01/28/18 09:01 1 SPRAYS Lorazepam 0.5 mg/ Syringe 1 ml @ 1 mls/min Q4H PRN IV 01/20/18 05:00 02/19/18 04:59 Morphine Sulfate (MoRPHine SULFATE INJ) 2 mg Q3H PRN IV 01/20/18 05:15 02/03/18 02:44 Diphenhydramine HCl (Benadryl Inj) 25 mg Q6H PRN IV 01/20/18 05:15 02/19/18 05:14 Albuterol/ Ipratropium (Duoneb) 3 ml Q2H PRN INH 01/21/18 22:45 02/20/18 22:44 Montelukast Sodium (Singulair Tab) 10 mg DAILY PO 01/24/18 09:00 02/23/18 08:59 01/30/18 08:32 10 MG Heparin Sodium (Porcine) (Heparin 10 Unit/ ml 5 ml Flush) 5 ml PRN PRN FLUSH 01/23/18 11:45 02/22/18 11:44 01/30/18 11:03 5 ML Dextrose 1,000 ml @ 0 mls/hr Q0M PRN IV 01/24/18 16:00 02/23/18 15:59 Ertapenem 1 gm/ Sodium Chloride 50 ml @ 120 mls/hr Q24H IV 01/25/18 10:00 02/04/18 09:59 01/30/18 10:21 120 MLS/HR Acetaminophen/ Hydrocodone Bitart ([place] 5/325 Tab) 1 tab Q4 PRN PO 01/26/18 06:00 02/09/18 05:59 Acetaminophen/ Hydrocodone Bitart ([place] 5/325 Tab) 2 tab Q4 PRN PO 01/26/18 06:00 02/09/18 05:59 Ranitidine HCl (zANTac TAB) 150 mg BID PO 01/28/18 21:00 02/27/18 20:59 01/30/18 08:32 150 MG
[2018-01-30] MEDS ORDERED: ERTA1INJ IV (16:04)
--- NOTE | 2018-02-02 08:07 | Discharge Summary ---
Discharge Summary Date of Service Feb 02, 2018. Discharge Summary Admission Date: Jan 20, 2018 at 02:20 Discharge Date: Jan 30, 2018 Discharge Disposition: Home with services Principal Diagnosis: complicated diverticulitis . Procedures: CT abdomen and pelvis 01/19/18 CT abdomen and pelvis 01/23/18 IV fluids IV meds TPN . Consultations: General Surgery ID . Medication Reconciliation New Medications: Ertapenem Sodium (Invanz) 1 Gm Inj 1 GM IV DAILY for 10 Days, #10 VIAL Hydrocodone/Acetaminophen 5MG/325MG ([place] 5MG/325MG) Tab 1-2 TABLET PO q 6 hrs PRN for Pain, #40 TAB PRN PAIN Continued Medications: Albuterol Hfa (Ventolin Hfa) 200 Puffs/84429 Mcg Aers 2-4 PUFFS INH Q6H PRN for wheezing, #1 INHALER Fluticasone Propionate (Nasal) (Flonase Allergy Relief Ch) 50 Mcg/Act Spr 2 SPRY DAVID DIRECTED Montelukast Sodium (Singulair) 10 Mg Tab 10 MG PO DAILY, TAB Ranitidine (Zantac) 150 Mg Tab 150 MG PO BID, TAB Admission Information HPI (per Admitting provider): History obtained from the patient and records. Medical history significant for asthma, allergic rhinitis, hyperuricemia, reflux. The last 2 days, patient more constipated than usual, achy lower abdominal pain. Patient admits to straining more than usual. No nausea, no emesis. Denies dysuria. Night sweats chills at some point. Patient seen at PCP's office. Seen at PCP's office, prescribed laxatives, enemas after plain x-ray showed stool burden. Successful nonbloody bowel movement with enema and MiraLax. Patient still has lower abdominal discomfort. At the Emergency Room, initial CT read showed sigmoid colitis, small amount of free air near inflamed segment. No drainable abscess. possible urachal diverticulum at the apex. Unremarkable appendix, right inguinal hernia. Patient received imipenem in the ER. . Physical Exam (per Admitting): VITAL SIGNS: Blood pressure was noted to be 130/76, pulse rate 60 later 50, RR 16, T 37 O2 sats 98 on room air. GENERAL: Noted to be uncomfortable, slightly anxious, no respiratory distress. SKIN: Normal color, warm. HEENT: bespectacled. [place] palpebral conjunctivae. No ptosis. Dry mucosa. NECK: Supple, nontender. CHEST: CTA. There is no tenderness. HEART: Bradycardic, no murmur. ABDOMEN: Hypogastric tenderness, some distention. EXTREMITIES: No edema. No tenderness, no gross deformities NEUROLOGIC: Coherent, no other gross focality. . Hospital Course COMPLICATED DIVERTICULITIS Presented to ED with abdominal pain. CT 01/19 demonstrated proximal sigmoid diverticulitis with small localized air pockets indicating walled off microperforations, no drainable abscess. Received IV daptomycin and imipenem / cilastatin in ED, then ordered ampicillin / sulbactam upon admission. Placed on bowel rest. ID and General Surgery consulted. F/U CT 01/23 demonstrated persistent sigmoid diverticulitis, multiple foci of extraluminal air indicating perforation, marked pericolonic inflammation, suggested sinus tract or fistula extending toward the dome of the bladder. Received TPN. Diet advanced and TPN discontinued. Antibiotic therapy changed to ertapenem per ID for outpatient therapy; total of 3 weeks of IV antibiotics recommended. Outpatient consultation with Colorectal Surgery anticipated. VTE PROPHYLAXIS SCD's. Ambulate. DISPOSITION Discharge to home. Primary Care follow-up with [facility]. Outpatient consultation with Colorectal Surgery to be arranged. . Total time spent on discharge = 25 min. This includes examination of the patient, discharge planning, medication reconciliation, and communication with other providers. . Discharge Instructions Discharge Instructions Date of Service Jan 30, 2018. Admission Reason for Admission: Colitis Discharge Discharge Diagnosis / Problem: diverticulitis Discharge Goals Goal(s): Decrease discomfort, Improve function, Improve disease control Activity Recommendations Activity Limitations: as noted below Lifting Limitations: no more than 25 pounds Exercise/Sports Limitations: until after follow-up appointment May Resume Sexual Activity: when tolerated Shower/Bathe: no limitations Driving or Machine Use: resume 1 day after discharge . Instructions / Follow-Up Instructions / Follow-Up follow up with [facility] Colorectal surgery and also may call Dr Nair's office [phone]- for followup Current Hospital Diet Patient's current hospital diet: Regular Diet, Low Fiber Diet Discharge Diet Recommended Diet: Low Fiber Diet Pending Studies Studies pending at discharge: no Laboratory Results Lipid Panel Test 01/28/18 06:09 Range/Units Triglycerides Level 195 H 0-150 mg/dl Medical Emergencies . Who to Call and When: Medical Emergencies: If at any time you feel your situation is an emergency, please call 911 immediately. . Non-Emergent Contact Non-Emergency issues call your: Primary Care Provider, Surgeon . "Provider Documentation" section prepared by Dion Nair. ..
== END 2018-01-30 17:10 | disposition home health service (06) | DRG 392 ==
LOC: C.EDB 23:24 → C.MSW 01-20 02:20 → ENRESERV 01-20 02:26
PROVIDERS: ADMIT Internal Medicine; ATTEND Hospitalist
DX: K57.20 Diverticulitis of large intestine with perforation and abscess without bleeding (principal); J45.909 Unspecified asthma, uncomplicated; K59.00 Constipation, unspecified; K21.9 Gastro-esophageal reflux disease without esophagitis